=== PATIENT | male | born 1960 | race Caucasian/White ===

== ENCOUNTER 2019-03-23 19:25 | Emergency (ER) | payer OTHER, SELFPAY ==
[2019-03-23 19:33] VITALS: BP 158/69; PULSE 87; RESP 18; TEMP 36.8; O2SAT 96
--- NOTE | 2019-03-23 19:41 | ED_ITS ---
HPI - Chest Pain General Chief Complaint: Chest Pain Stated Complaint: pain underneath rib cage Time Seen by Provider: 03/23/19 19:41 Source: patient Mode of arrival: ambulatory Limitations: no limitations History of Present Illness HPI narrative: The patient developed a right chest wall pain about 1 week ago. He has pain with motion, especially deep inspiration. He thinks he strained something. He did some moving a week ago, pain may be related to the lifting. He has chronic right shoulder pain from prior injury to the shoulder, that does not seem to involve his current pain. He has some left-sided chest pain. He has no history of CAD. He has no difficulty breathing. He denies hemoptysis. He has no history of DVT /PE. He has in IDDM, and hyperlipidemia. His previously undergone cholecystectomy. Today he has had chills, no fever. He denies appetite changes, he has no nausea, vomiting or diarrhea. Related Data Home Medications Medication Instructions Recorded Confirmed levothyroxine 200 mcg PO DAILY 03/23/19 03/23/19 metformin 500 mg PO BID 03/23/19 03/23/19 multivitamin 1 tab PO DAILY 03/23/19 03/23/19 rosuvastatin 10 mg PO DAILY 03/23/19 03/23/19 Previous Rx's Medication Instructions Recorded tramadol 50 mg PO Q6-8H PRN #14 tab 03/23/19 Allergies Allergy/AdvReac Type Severity Reaction Status Date / Time No Known Drug Allergies Allergy Verified 03/23/19 19:46 Review of Systems Review of Systems ROS Unobtainable: All systems reviewed & are unremarkable except as noted in HPI and below Constitutional Denies chills, Denies fever(s) and Denies weakness ENT Ears, Nose, Mouth, and Throat: Denies vertigo, Denies dizziness, Denies neck pa in and Denies sore throat Cardiovascular Reports chest pain (Right ribs) and Denies dyspnea Respiratory Denies cough and Denies dyspnea Gastrointestinal Gastrointestinal: Denies abdominal pain, Denies change in bowel habits, Denies diarrhea, Denies nausea and Denies vomiting Genitourinary Comments: No symptoms Musculoskeletal Denies neck pain Comments: Chronic right shoulder pain. Integumentary/Breasts Denies erythema and Denies rash Neurologic Denies vertigo, Denies dizziness and Denies weakness [facility] Medical History (Updated 03/23/19 @ 22:09 by Ramsey Chambers MD) Diabetes mellitus type 2 in obese (Acute) Diabetes type 2, controlled (Acute) High cholesterol (Acute) Hypothyroid (Acute) Surgical History (Updated 03/23/19 @ 21:02 by Ramsey Chambers MD) History of cholecystectomy (Acute) History of thyroidectomy (Acute) Social History Smoking Status: Never smoker Social History Smoking Status: Never smoker Exam Initial Vital Signs Initial Vital Signs: Vital Signs Temperature 98.3 F 03/23/19 19:33 Pulse Rate 87 03/23/19 19:33 Respiratory Rate 18 03/23/19 19:33 Blood Pressure 158/69 H 03/23/19 19:33 Pulse Oximetry 96 03/23/19 19:33 Const General: cooperative and well developed Nutritional Appearance: well nourished Orientation: alert, awake and oriented x3 HENMT Throat: posterior oropharynx normal Eyes Conjunctivae: conjunctivae normal Sclera: sclerae normal Chest Chest: normal inspection of the chest Other: Tenderness along the right costal margin. Resp Auscultation: clear to auscultation bilaterally and lung sounds not diminished Cardio Rate: regular rate Rhythm: regular rhythm Heart Sounds: S1 normal, S2 normal, no gallops, no murmurs and no rubs GI Inspection: non-distended Palpation: soft, no hepatosplenomegaly, No guarding, No pulsatile mass and tender (Along the right costal margin.) Auscultation: normal bowel sounds Back/Spine/Pelvis Back: No CVA tenderness Skin General: no rashes or lesions noted, No jaundice and No petechiae Neuro General: alert, oriented x3, gait normal and no focal motor deficits Speech: speech normal Extrem General: full ROM, no pedal edema and no calf tenderness Course Course Narrative: By exam the patient initially seemed to have a right costal margin strain. He had a history of chills. evaluation was initiated, and an elevated D-dimer was found. CTA of the chest revealed right atelectasis. He has no other acute process. He is discharged with instructions regarding atelectasis and muscle strain. He is advised to return here as necessary. Orders Ordered: ED Orders 08/17/19 19:51 Complete Blood Count AUTO DIFF Stat Comprehensive Metabolic Panel Stat D Dimer Stat Lipase Stat Partial Thromboplastin Time Stat Prothrombin Time INR Stat Troponin & CK Cardiac Panel Stat 03/23/19 19:52 XR chest 2V Stat 03/23/19 20:55 CT angio chest PE protocol Stat Discontinued Medications Sodium Chloride (Normal Saline 0.9%) 1,000 mls @ 1,000 mls/hr IV BOLUS ONE Stop: 03/23/19 21:54 Last Infusion: 03/23/19 22:24 Dose: 0 mls/hr Admin: 03/23/19 21:21 Dose: 1,000 mls/hr Ketorolac Tromethamine (Toradol) 30 mg IV NOW ONE Stop: 03/23/19 19:49 Last Admin: 03/23/19 20:06 Dose: 30 mg Tramadol HCl (Ultram 50mg Prepack) 1 bottle MISC SEEINSTR ONE Stop: 03/23/19 22:05 Last Admin: 03/23/19 22:07 Dose: 1 bottle Vital Signs - 8 hr 03/23/19 19:33 03/23/19 20:56 03/23/19 22:00 Temperature 98.3 F Pulse Rate 87 80 72 Respiratory Rate 18 22 18 Blood Pressure 158/69 H Blood Pressure [Right Arm] 126/60 130/57 L Pulse Oximetry 96 94 95 MDM - Chest Pain Lab Data Result diagrams: 03/23/19 19:51 03/23/19 19:51 Lab Results 03/23/19 03/23/19 03/23/19 Range/Units 19:51 19:51 19:51 WBC 9.5 (4.5-11.0) X10^3/uL RBC 4.95 (4.5-5.9) X10^6/uL Hgb 14.4 (13.5-17.5) g/dL Hct 42.5 (41-53) % MCV 85.7 (80-100) fL MCH 29.1 (26-34) PG MCHC 34.0 (30-36) % RDW 12.8 (11.6-14.8) % Plt Count 205 (150-400) X10^3/uL Neut % (Auto) 70.5 (50-75) % Lymph % (Auto) 15.9 L (25-40) % Hardeman % (Auto) 7.0 (3-14) % Eos % (Auto) 5.8 H (2-4) % Baso % (Auto) 0.8 (0-2) % Neut # (Auto) 6700 (2855-6250) /uL Lymph # (Auto) 1500 (8521-0126) /uL Hardeman # (Auto) 700 (0-900) /uL Eos # (Auto) 600 H (0-450) /uL Baso # (Auto) 100 (0-100) /uL PT 12.3 (10.1-12.7) SECONDS INR 1.1 (0.9-1.3) APTT 33 (26.4-36.2) SECONDS D-Dimer (<230) ng/mL Sodium 139 (137-145) mmol/L Potassium 4.3 (3.4-5.1) mmol/L Chloride 99 (98-107) mmol/L Carbon Dioxide 32 (22-32) mmol/L BUN 15 (9-20) mg/dL Creatinine 0.70 (0.66-1.25) mg/dL Estimated GFR > 60.0 (>60) mL/min BUN/Creatinine Ratio 21.4 (6-22) Glucose 204 H (70-100) mg/dL Calcium 9.4 (8.4-10.2) mg/dL Total Bilirubin 0.5 (0.2-1.3) mg/dL AST 61 H (17-59) IU/L ALT 89 H (21-72) IU/L Alkaline Phosphatase 129 H (38-126) U/L Total Creatine Kinase 53 L (55-170) U/L CK-MB (CK-2) TNP CK-MB (CK-2) Rel Index TNP Troponin I < 0.012 (0.01-0.034) ng/mL Total Protein 7.8 (6.3-8.2) g/dL Albumin 4.1 (3.5-5.0) g/dL Globulin 3.7 (1.7-4.1) g/dL Albumin/Globulin Ratio 1.1 (1.0-2.8) Lipase 91 (23-300) U/L 03/23/19 Range/Units 19:51 WBC (4.5-11.0) X10^3/uL RBC (4.5-5.9) X10^6/uL Hgb (13.5-17.5) g/dL Hct (41-53) % MCV (80-100) fL MCH (26-34) PG MCHC (30-36) % RDW (11.6-14.8) % Plt Count (150-400) X10^3/uL Neut % (Auto) (50-75) % Lymph % (Auto) (25-40) % Hardeman % (Auto) (3-14) % Eos % (Auto) (2-4) % Baso % (Auto) (0-2) % Neut # (Auto) (6632-8212) /uL Lymph # (Auto) (0674-0871) /uL Hardeman # (Auto) (0-900) /uL Eos # (Auto) (0-450) /uL Baso # (Auto) (0-100) /uL PT (10.1-12.7) SECONDS INR (0.9-1.3) APTT (26.4-36.2) SECONDS D-Dimer 2745 H (<230) ng/mL Sodium (137-145) mmol/L Potassium (3.4-5.1) mmol/L Chloride (98-107) mmol/L Carbon Dioxide (22-32) mmol/L BUN (9-20) mg/dL Creatinine (0.66-1.25) mg/dL Estimated GFR (>60) mL/min BUN/Creatinine Ratio (6-22) Glucose (70-100) mg/dL Calcium (8.4-10.2) mg/dL Total Bilirubin (0.2-1.3) mg/dL AST (17-59) IU/L ALT (21-72) IU/L Alkaline Phosphatase (38-126) U/L Total Creatine Kinase (55-170) U/L CK-MB (CK-2) CK-MB (CK-2) Rel Index Troponin I (0.01-0.034) ng/mL Total Protein (6.3-8.2) g/dL Albumin (3.5-5.0) g/dL Globulin (1.7-4.1) g/dL Albumin/Globulin Ratio (1.0-2.8) Lipase (23-300) U/L Imaging Data Chest x-ray: Radiologist's impression: [address] [address] XRay Report Signed Patient: Kofi Devlin WMR#: [id number] : [id number] Age/Sex: 58 / MDate of Service: 03/23/19 Loc: ED Accession Number: [id number] Procedure: XR chest 2V Ordering Provider: Ramsey Chambers MD PROCEDURE: XR CHEST 2V INDICATIONS: Right chest pain TECHNIQUE: 2 views of the chest were acquired. COMPARISON: None. FINDINGS: Surgical changes and devices: None. Lungs and pleura: Lungs are clear. No pleural effusions or pneumothorax. Mediastinum: Mediastinal contours are normal. Heart size is normal. Bones and chest wall: No suspicious bony abnormalities. Soft tissues appear unremarkable. IMPRESSION: No evidence acute pulmonary process. Dictated by: Herb Flanagan M.D. on 03/23/2019 at 20:11 Approved by: Herb Flanagan M.D. on 03/23/2019 at 20:11 CT scan - chest: Radiologist's impression: Kofi Devlin 58 M [address] [address] [address] Scan Report Signed Patient: Kofi Devlin WMR#: [id number] : [id number] Age/Sex: 58 / MDate of Service: 03/23/19 Loc: ED Accession Number: [id number] Procedure: CT angio chest PE protocol Ordering Provider: Ramsey Chambers MD PROCEDURE: CT ANGIO CHEST PE PROTOCOL INDICATIONS: Atypical right chest pain. Elevated D dimer. TECHNIQUE: After the administration of intravenous contrast, 2 mm thick sections acquired from the pulmonary apices to the posterior costophrenic angles. 3-dimensional maximum intensity projection (MIP) coronal and sagittal reformats were then acquired through the thorax. For radiation dose reduction, the following was used: automated exposure control, adjustment of mA and/or kV according to patient size. COMPARISON: None. FINDINGS: Image quality: Good. Pulmonary arteries: Pulmonary arteries are normal in size. Imaging is somewhat late, and therefore small peripheral intraluminal filling defects cannot be excluded. No large or moderate pulmonary emboli Lungs and pleura: Linear atelectasis, right lung base. Lungs are otherwise clear. No pleural effusions or pneumothorax. Central and peripheral airways are patent. Mediastinum: Heart size is normal, without pericardial effusion. No mediastinal or hilar adenopathy. Thoracic aorta is normal in caliber and enhancement. Esophagus is normal in caliber, without hiatal hernia. Bones and chest wall: No suspicious bony lesions. Ribs and thoracic spine appear intact throughout. Thyroid gland is not well visualized. No axillary or supracla vicular adenopathy. Abdomen: Shotty portacaval lymph nodes. Visualized upper abdominal contents are otherwise unremarkable. IMPRESSION: 1. No evidence of pulmonary emboli. Small peripheral emboli are not excluded 2. Linear atelectasis, right lung base. Comment: Findings were discussed with Dr. Chambers at the time of study dictation. Dictated by: Herb Flanagan M.D. on 03/23/2019 at 21:15 Approved by: Herb Flanagan M.D. on 03/23/2019 at 21:22 ECG Data Attestation: I personally reviewed and interpreted this ECG as follows: (Normal sinus rhythm rate 84 beats per minute. normal intervals. No acute ST T wave changes. No ectopy.) Discharge Plan Departure Patient Disposition: Home Clinical Impression: Muscle strain of anterior chest wall, Atelectasis Discharge Date/Time: 03/23/19 22:27 Interventions: ED Discharge Assessment Last Done: 03/23/19 22:26 Instructions: Atelectasis, DI for Muscle Strain Activity Restrictions/Additional Instructions: Continue your Tylenol and Advil regimen for pain. Tramadol every 6 hours as needed for added pain control. Walk daily with deep breathing. 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 Return the ER for worsening pain, fever, or purulent cough. Return to ER if you start coughing up blood. Prescriptions: New tramadol 50 mg tablet 50 mg PO Q6-8H PRN (Reason: pain) Qty: 14 RF: 0 No Action metformin 500 mg Tablet 500 mg PO BID RF: 0 rosuvastatin 10 mg Tablet 10 mg PO DAILY RF: 0 levothyroxine 200 mcg Capsule 200 mcg PO DAILY RF: 0 multivitamin Tablet 1 tab PO DAILY RF: 0
--- NOTE | 2019-03-23 19:52 | DI.RAD.S_ITS ---
PROCEDURE: XR CHEST 2V INDICATIONS: Right chest pain TECHNIQUE: 2 views of the chest were acquired. COMPARISON: None. FINDINGS: Surgical changes and devices: None. Lungs and pleura: Lungs are clear. No pleural effusions or pneumothorax. Mediastinum: Mediastinal contours are normal. Heart size is normal. Bones and chest wall: No suspicious bony abnormalities. Soft tissues appear unremarkable. IMPRESSION: No evidence acute pulmonary process. Dictated by: Herb Flanagan M.D. on 03/23/2019 at 20:11 Approved by: Herb Flanagan M.D. on 03/23/2019 at 20:11
[2019-03-23 20:06] LABS: Add Manual Diff / Slide Review NO; Basophils Absolute Auto 100 /uL (0-100); Basophils Percent Auto 0.8 % (0-2); Eosinophils Absolute Auto 600 /uL (0-450); Eosinophils Percent Auto 5.8 % (2-4); Hematocrit 42.5 % (41-53); Hemoglobin 14.4 g/dL (13.5-17.5); Lymphocytes Absolute Auto 1500 /uL (1100-4500); Lymphocytes Percent Auto 15.9 % (25-40); Mean Corpuscular Hemoglobin 29.1 PG (26-34); Mean Corpuscular Volume 85.7 fL (80-100); Monocytes Absolute Auto 700 /uL (0-900); Neutrophils Absolute Auto 6700 /uL (1500-7000); Neutrophils Percent Auto 70.5 % (50-75); Platelet Count 205 X10^3/uL (150-400); Red Blood Cell Count 4.95 X10^6/uL (4.5-5.9); Red Cell Distribution Width 12.8 % (11.6-14.8); White Blood Cell Count 9.5 X10^3/uL (4.5-11.0)
[2019-03-23] MEDS: KETOROLAC 60 MG/2 ML VIAL 30 MG IV (20:06)
[2019-03-23 20:14] LABS: INR 1.1 (0.9-1.3); Prothrombin Time 12.3 SECONDS (10.1-12.7)
[2019-03-23 20:17] LABS: PTT Partial Thromboplastin Tim 33 SECONDS (26.4-36.2)
[2019-03-23 20:19] LABS: Alanine Aminotransferase 89 IU/L (21-72); Albumin 4.1 g/dL (3.5-5.0); Albumin Globulin Ratio 1.1 (1.0-2.8); Alkaline Phosphatase 129 U/L (38-126); Aspartate Aminotransferase 61 IU/L (17-59); BUN Creatinine Ratio 21.4 (6-22); Bilirubin Total 0.5 mg/dL (0.2-1.3); Blood Urea Nitrogen 15 mg/dL (9-20); Calcium 9.4 mg/dL (8.4-10.2); Carbon Dioxide 32 mmol/L (22-32); Chloride 99 mmol/L (98-107); Creatine Kinase 53 U/L (55-170); Estimated Glomerular Filt Rate > 60.0 mL/min (>60); Globulin 3.7 g/dL (1.7-4.1); Glucose 204 mg/dL (70-100); HEMOLYSIS < 15 (0-50); Lipase 91 U/L (23-300); Potassium 4.3 mmol/L (3.4-5.1); Sodium 139 mmol/L (137-145); Total Protein 7.8 g/dL (6.3-8.2)
[2019-03-23 20:31] LABS: Troponin I < 0.012 ng/mL (0.01-0.034)
[2019-03-23 20:32] LABS: D Dimer 2745 ng/mL (<230)
--- NOTE | 2019-03-23 20:55 | DI.CT.S_ITS ---
PROCEDURE: CT ANGIO CHEST PE PROTOCOL INDICATIONS: Atypical right chest pain. Elevated D dimer. TECHNIQUE: After the administration of intravenous contrast, 2 mm thick sections acquired from the pulmonary apices to the posterior costophrenic angles. 3-dimensional maximum intensity projection (MIP) coronal and sagittal reformats were then acquired through the thorax. For radiation dose reduction, the following was used: automated exposure control, adjustment of mA and/or kV according to patient size. COMPARISON: None. FINDINGS: Image quality: Good. Pulmonary arteries: Pulmonary arteries are normal in size. Imaging is somewhat late, and therefore small peripheral intraluminal filling defects cannot be excluded. No large or moderate pulmonary emboli Lungs and pleura: Linear atelectasis, right lung base. Lungs are otherwise clear. No pleural effusions or pneumothorax. Central and peripheral airways are patent. Mediastinum: Heart size is normal, without pericardial effusion. No mediastinal or hilar adenopathy. Thoracic aorta is normal in caliber and enhancement. Esophagus is normal in caliber, without hiatal hernia. Bones and chest wall: No suspicious bony lesions. Ribs and thoracic spine appear intact throughout. Thyroid gland is not well visualized. No axillary or supraclavicular adenopathy. Abdomen: Shotty portacaval lymph nodes. Visualized upper abdominal contents are otherwise unremarkable. IMPRESSION: 1. No evidence of pulmonary emboli. Small peripheral emboli are not excluded 2. Linear atelectasis, right lung base. Comment: Findings were discussed with Dr. Chambers at the time of study dictation. Dictated by: Herb Flanagan M.D. on 03/23/2019 at 21:15 Approved by: Herb Flanagan M.D. on 03/23/2019 at 21:22
[2019-03-23 20:56] VITALS: BP 126/60; PULSE 80; RESP 22; O2SAT 94
[2019-03-23] MEDS: SODIUM CHLORIDE 0.9% 1,000 ML 1000 ML IV (21:21)
[2019-03-23 22:00] VITALS: BP 130/57; PULSE 72; RESP 18; O2SAT 95
[2019-03-23] MEDS: TRAMADOL 50 MG PREPACK 1 BOTTLE MISC (22:07)
== END 2019-03-23 22:27 | disposition home or self-care (01) ==
PROVIDERS: Emergency Provider Emergency Medicine
DX: S29.011A Strain of muscle and tendon of front wall of thorax, initial encounter (principal); J98.11 Atelectasis
CPT/HCPCS: 36591; 71046; 71275; 80053; 82550; 83690; 84484; 85025; 85379; 85610; 85730; 93005; 93010; 96361; 96374; 99283; 99285; J1885; Q9967

== ENCOUNTER 2019-04-08 06:44 | Emergency (ER) | payer OTHER, SELFPAY ==
[2019-04-08 06:51] VITALS: BP 143/63; PULSE 101; RESP 22; TEMP 37.4; O2SAT 96; BMI 40.4
--- NOTE | 2019-04-08 07:01 | ED_ITS ---
HPI - Chest Pain General Chief Complaint: Chest Pain Stated Complaint: CHEST DISCOMFORT Time Seen by Provider: 04/08/19 06:59 Source: patient Mode of arrival: ambulatory Limitations: no limitations History of Present Illness HPI narrative: 58-year-old male who is seen here in the emergency department 2 weeks ago for right-sided chest discomfort. At that point had a chest x-ray and labs and a CTA of the chest which showed right-sided atelectasis. Was sent home with symptom control. Here for evaluation of same symptoms. He does describe right-sided upper abdomen/chest discomfort. Some nausea but no vomiting. No urinary symptoms. No change in his bowel habits. States that he can take a deep breath however at hurts to breathe. This pain is not worse with palpation or movement. Not worse with bowel movements or urinating. States the pain medications are only minimally helping his symptoms. Has had his gallbladder out. Related Data Home Medications Medication Instructions Recorded Confirmed levothyroxine 200 mcg PO DAILY 03/23/19 03/23/19 metformin 500 mg PO BID 03/23/19 03/23/19 multivitamin 1 tab PO DAILY 03/23/19 03/23/19 rosuvastatin 10 mg PO DAILY 03/23/19 03/23/19 Previous Rx's Medication Instructions Recorded tramadol 50 mg PO Q6-8H PRN #14 tab 03/23/19 ondansetron 4 mg PO Q6H PRN #14 tab 04/08/19 oxycodone-acetaminophen [Percocet] 1 tab PO Q4-6H PRN #7 tab 04/08/19 Allergies Allergy/AdvReac Type Severity Reaction Status Date / Time No Known Drug Allergies Allergy Verified 03/23/19 19:46 Review of Systems Constitutional Constitutional: Denies fatigue and Denies fever(s) Cardiovascular Cardiovascular: Denies chest pain, Denies palpitations, Reports dyspnea (Secondary to the pain) and Denies dyspnea on exertion Respiratory Respiratory: Reports dyspnea (Secondary to the pain) and Denies dyspnea on exertion Gastrointestinal Gastrointestinal: Reports abdominal pain, Denies change in stool character, Reports nausea and Denies vomiting Genitourinary Genitourinary: Denies dysuria and Denies flank pain Musculoskeletal Musculoskeletal: Denies abnormal gait, Denies myalgias and Denies arthralgias Integumentary/Breasts Skin/Breast: Denies lesions and Denies rash Neurologic Neurologic: Denies abnormal gait and Denies behavioral changes Psychiatric Psychiatric: Denies behavioral changes Endocrine Endocrine: Denies fatigue and Denies palpitations Hematologic/Lymphatic Hematologic/Lymphatic: Denies easy bleeding and Denies easy bruising [facility] Medical History Diabetes mellitus type 2 in obese (Acute) Diabetes type 2, controlled (Acute) High cholesterol (Acute) Hypothyroid (Acute) Surgical History History of cholecystectomy (Acute) History of thyroidectomy (Acute) Social History Smoking Status: Never smoker Social History Smoking Status: Never smoker Exam Initial Vital Signs Initial Vital Signs: Vital Signs Temperature 99.4 F 04/08/19 06:51 Pulse Rate 101 H 04/08/19 06:51 Respiratory Rate 22 04/08/19 06:51 Blood Pressure 143/63 H 04/08/19 06:51 Pulse Oximetry 96 04/08/19 06:51 Const General: cooperative, well developed and well groomed Orientation: alert, awake and oriented x3 HENMT Head: normal to inspection and normocephalic Chest Chest: No crepitus and No tenderness Resp Effort & Inspection: normal respiratory effort Auscultation: clear to auscultation bilaterally Cardio Rate: regular rate Rhythm: regular rhythm Pulses: radial pulses present GI Inspection: non-distended Palpation: soft, No firm and No tender Back/Spine/Pelvis Back: No CVA tenderness Skin Lesions: no lesions Rashes: no rashes Neuro General: alert and awake Cognition: normal cognition Speech: speech normal Gait: normal gait Motor: muscle tone normal throughout Extrem General: normal to inspection and capillary refill normal Psych Appearance: grossly normal and well kempt Course Orders Ordered: ED Orders 04/08/19 06:47 EKG-12 Lead Stat 04/08/19 07:00 CRP [C-Reactive Protein Quant] Stat Carcinoembryonic Antigen Stat Complete Blood Count AUTO DIFF Stat Comprehensive Metabolic Panel Stat Erythrocyte Sedimentation Rate Stat Lipase Stat Partial Thromboplastin Time Stat Procalcitonin Stat Prothrombin Time INR Stat Troponin & CK Cardiac Panel Stat 04/08/19 07:11 Chest [XR chest 2V] Stat 04/08/19 07:46 CT abdomen pelvis w con Stat 04/08/19 07:48 Hepatitis Acute Panel Stat 04/08/19 09:01 Alpha Fetoprotein Stat 04/08/19 09:15 Blood Culture Stat 04/08/19 09:25 Lactate (Lactic Acid) Stat Discontinued Medications Ondansetron HCl (Zofran) 4 mg IV NOW ONE Stop: 04/08/19 07:49 Last Admin: 04/08/19 07:53 Dose: 4 mg Documented by: JANAY Vital Signs Vital signs: Vital Signs - 8 hr 04/08/19 06:51 04/08/19 08:18 04/08/19 09:21 Temperature 99.4 F Pulse Rate 101 H 81 82 Respiratory Rate 22 16 18 Blood Pressure 143/63 H Blood Pressure [Left Arm] 120/50 L 161/134 H Pulse Oximetry 96 93 93 04/08/19 10:43 Temperature Pulse Rate 84 Respiratory Rate 16 Blood Pressure Blood Pressure [Left Arm] 121/56 L Pulse Oximetry 98 MDM - Chest Pain Medical Records Data Attestation: I reviewed the patient's medical records. Lab Data Attestation: I reviewed the patient's lab results. Result diagrams: 04/08/19 07:00 04/08/19 07:00 Labs: Lab Results 04/08/19 04/08/19 04/08/19 Range/Units 07:00 07:00 07:00 WBC 11.2 H (4.5-11.0) X10^3/uL RBC 4.76 (4.5-5.9) X10^6/uL Hgb 13.5 (13.5-17.5) g/dL Hct 40.1 L (41-53) % MCV 84.3 (80-100) fL MCH 28.3 (26-34) PG MCHC 33.5 (30-36) % RDW 13.5 (11.6-14.8) % Plt Count 205 (150-400) X10^3/uL Neut % (Auto) 74.2 (50-75) % Lymph % (Auto) 10.2 L (25-40) % Montgomery % (Auto) 9.5 (3-14) % Eos % (Auto) 5.2 H (2-4) % Baso % (Auto) 0.9 (0-2) % Neut # (Auto) 8300 H (2743-0853) /uL Lymph # (Auto) 1100 (5224-0362) /uL Montgomery # (Auto) 1100 H (0-900) /uL Eos # (Auto) 600 H (0-450) /uL Baso # (Auto) 100 (0-100) /uL ESR (0-15) MM/HR PT 14.3 H (10.1-12.7) SECONDS INR 1.2 (0.9-1.3) APTT 32 (26.4-36.2) SECONDS Sodium 138 (137-145) mmol/L Potassium 4.2 (3.4-5.1) mmol/L Chloride 99 (98-107) mmol/L Carbon Dioxide 27 (22-32) mmol/L BUN 16 (9-20) mg/dL Creatinine 0.60 L (0.66-1.25) mg/dL Estimated GFR > 60.0 (>60) mL/min BUN/Creatinine Ratio 26.7 H (6-22) Glucose 178 H (70-100) mg/dL Lactate (0.7-2.1) mmol/L Calcium 9.3 (8.4-10.2) mg/dL Total Bilirubin 1.5 H (0.2-1.3) mg/dL AST 101 H (17-59) IU/L ALT 124 H (21-72) IU/L Alkaline Phosphatase 352 H (38-126) U/L Total Creatine Kinase 30 L (55-170) U/L CK-MB (CK-2) TNP CK-MB (CK-2) Rel Index TNP Troponin I < 0.012 (0.01-0.034) ng/mL C-Reactive Protein (<1.0) mg/dL Total Protein 7.4 (6.3-8.2) g/dL Albumin 3.8 (3.5-5.0) g/dL Globulin 3.6 (1.7-4.1) g/dL Albumin/Globulin Ratio 1.1 (1.0-2.8) Lipase 66 (23-300) U/L Carcinoembryonic Ag (0.1-3.0) ng/mL Procalcitonin (<0.5) ng/mL 04/08/19 04/08/19 04/08/19 Range/Units 07:00 07:00 07:00 WBC (4.5-11.0) X10^3/uL RBC (4.5-5.9) X10^6/uL Hgb (13.5-17.5) g/dL Hct (41-53) % MCV (80-100) fL MCH (26-34) PG MCHC (30-36) % RDW (11.6-14.8) % Plt Count (150-400) X10^3/uL Neut % (Auto) (50-75) % Lymph % (Auto) (25-40) % Montgomery % (Auto) (3-14) % Eos % (Auto) (2-4) % Baso % (Auto) (0-2) % Neut # (Auto) (6459-7552) /uL Lymph # (Auto) (6460-1322) /uL Montgomery # (Auto) (0-900) /uL Eos # (Auto) (0-450) /uL Baso # (Auto) (0-100) /uL ESR 56 H (0-15) MM/HR PT (10.1-12.7) SECONDS INR (0.9-1.3) APTT (26.4-36.2) SECONDS Sodium (137-145) mmol/L Potassium (3.4-5.1) mmol/L Chloride (98-107) mmol/L Carbon Dioxide (22-32) mmol/L BUN (9-20) mg/dL Creatinine (0.66-1.25) mg/dL Estimated GFR (>60) mL/min BUN/Creatinine Ratio (6-22) Glucose (70-100) mg/dL Lactate (0.7-2.1) mmol/L Calcium (8.4-10.2) mg/dL Total Bilirubin (0.2-1.3) mg/dL AST (17-59) IU/L ALT (21-72) IU/L Alkaline Phosphatase (38-126) U/L Total Creatine Kinase (55-170) U/L CK-MB (CK-2) CK-MB (CK-2) Rel Index Troponin I (0.01-0.034) ng/mL C-Reactive Protein (<1.0) mg/dL Total Protein (6.3-8.2) g/dL Albumin (3.5-5.0) g/dL Globulin (1.7-4.1) g/dL Albumin/Globulin Ratio (1.0-2.8) Lipase (23-300) U/L Carcinoembryonic Ag 0.5 (0.1-3.0) ng/mL Procalcitonin 1.39 H (<0.5) ng/mL 04/08/19 04/08/19 Range/Units 07:00 09:25 WBC (4.5-11.0) X10^3/uL RBC (4.5-5.9) X10^6/uL Hgb (13.5-17.5) g/dL Hct (41-53) % MCV (80-100) fL MCH (26-34) PG MCHC (30-36) % RDW (11.6-14.8) % Plt Count (150-400) X10^3/uL Neut % (Auto) (50-75) % Lymph % (Auto) (25-40) % Montgomery % (Auto) (3-14) % Eos % (Auto) (2-4) % Baso % (Auto) (0-2) % Neut # (Auto) (2147-9035) /uL Lymph # (Auto) (7395-7215) /uL Montgomery # (Auto) (0-900) /uL Eos # (Auto) (0-450) /uL Baso # (Auto) (0-100) /uL ESR (0-15) MM/HR PT (10.1-12.7) SECONDS INR (0.9-1.3) APTT (26.4-36.2) SECONDS Sodium (137-145) mmol/L Potassium (3.4-5.1) mmol/L Chloride (98-107) mmol/L Carbon Dioxide (22-32) mmol/L BUN (9-20) mg/dL Creatinine (0.66-1.25) mg/dL Estimated GFR (>60) mL/min BUN/Creatinine Ratio (6-22) Glucose (70-100) mg/dL Lactate 1.2 (0.7-2.1) mmol/L Calcium (8.4-10.2) mg/dL Total Bilirubin (0.2-1.3) mg/dL AST (17-59) IU/L ALT (21-72) IU/L Alkaline Phosphatase (38-126) U/L Total Creatine Kinase (55-170) U/L CK-MB (CK-2) CK-MB (CK-2) Rel Index Troponin I (0.01-0.034) ng/mL C-Reactive Protein 20.7 H (<1.0) mg/dL Total Protein (6.3-8.2) g/dL Albumin (3.5-5.0) g/dL Globulin (1.7-4.1) g/dL Albumin/Globulin Ratio (1.0-2.8) Lipase (23-300) U/L Carcinoembryonic Ag (0.1-3.0) ng/mL Procalcitonin (<0.5) ng/mL Imaging Data Chest x-ray: Radiologist's impression: [address] [address] XRay Report Signed Patient: Kofi Devlin WMR#: [id number] : 2Acct:[id number] Age/Sex: 58 / MDate of Service: 04/08/19 Loc: ED Accession Number: [id number] Procedure: XR chest 2V Ordering Provider: Jaxson Mchugh D.O. PROCEDURE: XR CHEST 2V INDICATIONS: chest pain upon inspiration/cough TECHNIQUE: 2 views of the chest were acquired. COMPARISON: [facility], CT, CT ANGIO CHEST PE PROTOCOL, 03/23/2019, 20:56. [facility], CR, XR CHEST 2V, 03/23/2019, 19:54. FINDINGS: Surgical changes and devices: Postoperative change of the left shoulder is seen. Lungs and pleura: Low lung volumes are noted. This causes a crowded appearance to the lung markings and limits evaluation. Mild, streaky opacities are seen at the lung bases. No focal infiltrates are seen. Mediastinum: Mediastinal contours are normal. Heart size is normal. Bones and chest wall: No suspicious bony abnormalities. Age-appropriate bony degenerative changes are seen. Soft tissues appear unremarkable. IMPRESSION: Low lung volumes, with likely atelectasis at the lung bases. Dictated by: Balta Cowart M.D. on 04/08/2019 at 6:32 Approved by: Balta Cowart M.D. on 04/08/2019 at 6:34 CT scan - abdomen: Radiologist's impression: [address] [address] [address] Scan Report Signed Patient: Kofi Devlin WMR#: [id number] : 2Acct:[id number] Age/Sex: 58 / MDate of Service: 04/08/19 Loc: ED Accession Number: [id number] Procedure: CT abdomen pelvis w con Ordering Provider: Jaxson Mchugh D.O. PROCEDURE: CT ABDOMEN PELVIS W CON INDICATIONS: Generalized abdominal pain TECHNIQUE: After the administration of intravenous contrast, 5 mm thick sections acquired from the diaphragm to the symphysis. 5 mm coronal and sagittal reformats were acquired. For radiation dose reduction, the following was used: automated exposure control, adjustment of mA and/or kV according to patient size. COMPARISON: [facility], CR, XR CHEST 2V, 04/08/2019, 7:11. [facility], CT, CT ANGIO CHEST PE PROTOCOL, 03/23/2019, 20:56. FINDINGS: Image quality: Excellent. ABDOMEN: Lung bases: Lung bases are clear. Heart size is normal. Solid organs: The liver demonstrates innumerable well-defined low-density lesions varying sizes. The largest of these measures 4.4 cm. Gallbladder is not seen. Biliary system is non dilated. Pancreas enhances normally. Spleen is enlarged measuring 16 cm AP. No definite focal splenic lesions are detected. No adrenal nodules. Kidneys demonstrate normal size and enhancement, without hydronephrosis. Peritoneum and bowel: Subtle areas of colonic thickening are seen, including the ascending colon, the proximal transverse colon, and the sigmoid colon. Sigmoid diverticulosis is seen. There is a small amount of free intraperitoneal fluid seen. No dilated loops of small bowel are seen seen. No free air is seen. Incidental note is made of a normal-appearing appendix. Nodes and vessels: No retroperitoneal or mesenteric adenopathy by size cr iteria. Aorta and inferior vena cava are normal in size. Miscellaneous: A trace periumbilical hernia is seen, containing fat. PELVIS: Genitourinary: Bladder wall thickness is normal. Miscellaneous: No inguinal adenopathy. Mild bilateral fat containing inguinal hernias Bones: No suspicious bony lesions. No vertebral body compression fractures. Degenerative changes are seen, which are most prominent at the L5-S1 level. IMPRESSION: Metastatic disease to the liver until proven otherwise. 3 areas of colonic wall thickening are seen. When clinically appropriate (fo llowing adequate treatment of the patient's current clinical episode) a colonoscopy is recommended for further evaluation for a potential underlying mass (if not already recently done). Likely mild distal sigmoid diverticulitis. There is a small amount of free intraperitoneal fluid seen, which is abnormal for a male. Incidental note is made of: Splenomegaly Trace periumbilical hernia Focal L5-S1 degenerative change Normal appendix Mild bilateral fat containing inguinal hernias Dictated by: Balta Cowart M.D. on 04/08/2019 at 7:25 Approved by: Balta Cowart M.D. on 04/08/2019 at 7:33 ECG Data Attestation: I personally reviewed and interpreted this ECG as follows: Prior ECG tracings: not available for review Interpretation: Sinus tachycardia Ventricular rate of 101 Left axis deviation Normal QRS Normal QTC No ST T wave changes MDM Narrative Medical decision making narrative: Patient does have a benign abdominal exam. During his prior visit here in the emergency department he had a cardiac workup to include a CT of his chest which does not show any pulmonary embolism. His presenting symptoms today he states are the same symptoms he had during his last visit only worsening/continuing. CT scan of his abdomen is performed. There are lesions on his liver and thickening of his colon that is concerning for metastatic disease. Patient stated that he had a colonoscopy within the past year were 1 polyp was removed. He states that there were no other a bnormalities. Five years before that he had another colonoscopy where he stated that they removed multiple polyps that were all ?pre cancerous? he does have a family history of ?cancers ?I did discuss the case with his primary provider who recommended adding the cancer markers and other inflammatory markers. His symptoms could also be inflammatory/infectious. His hepatitis panel is pending. Will send home with a change in his symptom treatment. We were able to schedule an appointment for him tomorrow with his primary provider. Patient was given this information. Was given return precautions and follow-up instructions. He expressed understanding and agreement with plan. Discharge Plan Departure Patient Disposition: Home Clinical Impression: Abdominal pain Qualifiers: Abdominal location: generalized Qualified Code(s): R10.84 - Generalized abdominal pain Instructions: DI for Abdominal Pain-Adult Activity Restrictions/Additional Instructions: Take all of your medications as directed. You do have an appointment tomorrow morning with Dr. Tyson office in [place] had a check-in time at 0920 hours. It is important that you keep this appointment and if you cannot keep it. Return to the emergency department for any new or worsening symptoms Prescriptions: New ondansetron 4 mg tablet,disintegrating 4 mg PO Q6H PRN (Reason: nausea and vomiting) Qty: 14 RF: 0 oxycodone-acetaminophen [Percocet] 5-325 mg tablet 1 tab PO Q4-6H PRN (Reason: pain) Qty: 7 RF: 0 No Action metformin 500 mg Tablet 500 mg PO BID RF: 0 rosuvastatin 10 mg Tablet 10 mg PO DAILY RF: 0 levothyroxine 200 mcg Capsule 200 mcg PO DAILY RF: 0 multivitamin Tablet 1 tab PO DAILY RF: 0 tramadol 50 mg tablet 50 mg PO Q6-8H PRN (Reason: pain) Qty: 14 RF: 0
--- NOTE | 2019-04-08 07:11 | DI.RAD.S_ITS ---
PROCEDURE: XR CHEST 2V INDICATIONS: chest pain upon inspiration/cough TECHNIQUE: 2 views of the chest were acquired. COMPARISON: [facility], CT, CT ANGIO CHEST PE PROTOCOL, 03/23/2019, 20:56. [facility], CR, XR CHEST 2V, 03/23/2019, 19:54. FINDINGS: Surgical changes and devices: Postoperative change of the left shoulder is seen. Lungs and pleura: Low lung volumes are noted. This causes a crowded appearance to the lung markings and limits evaluation. Mild, streaky opacities are seen at the lung bases. No focal infiltrates are seen. Mediastinum: Mediastinal contours are normal. Heart size is normal. Bones and chest wall: No suspicious bony abnormalities. Age-appropriate bony degenerative changes are seen. Soft tissues appear unremarkable. IMPRESSION: Low lung volumes, with likely atelectasis at the lung bases. Dictated by: Balta Cowart M.D. on 04/08/2019 at 6:32 Approved by: Balta Cowart M.D. on 04/08/2019 at 6:34
--- NOTE | 2019-04-08 07:15 | PC.NURSE ---
pt arrived POV with . reports CP and continuous nausea since 02/26. taking OTC meds + tramadol for pain. has been seen twice before for same sx. CP with inspiration, lungs clear. ambulatory. NSR 88. connected to cardiac monitoring. 20G IV placed and labs sent per protocol. pt CXR completed. awaiting MD assessment.
[2019-04-08 07:20] LABS: Add Manual Diff / Slide Review NO; Basophils Absolute Auto 100 /uL (0-100); Basophils Percent Auto 0.9 % (0-2); Eosinophils Absolute Auto 600 /uL (0-450); Eosinophils Percent Auto 5.2 % (2-4); Hematocrit 40.1 % (41-53); Hemoglobin 13.5 g/dL (13.5-17.5); Lymphocytes Absolute Auto 1100 /uL (1100-4500); Lymphocytes Percent Auto 10.2 % (25-40); Mean Corpuscular HGB Conc 33.5 % (30-36); Mean Corpuscular Hemoglobin 28.3 PG (26-34); Mean Corpuscular Volume 84.3 fL (80-100); Monocytes Absolute Auto 1100 /uL (0-900); Monocytes Percent Auto 9.5 % (3-14); Neutrophils Absolute Auto 8300 /uL (1500-7000); Neutrophils Percent Auto 74.2 % (50-75); Platelet Count 205 X10^3/uL (150-400); Red Blood Cell Count 4.76 X10^6/uL (4.5-5.9); Red Cell Distribution Width 13.5 % (11.6-14.8); White Blood Cell Count 11.2 X10^3/uL (4.5-11.0)
[2019-04-08 07:21] LABS: INR 1.2 (0.9-1.3); Prothrombin Time 14.3 SECONDS (10.1-12.7)
[2019-04-08 07:22] LABS: HEMOLYSIS < 15 (0-50); Sodium 138 mmol/L (137-145)
[2019-04-08 07:24] LABS: PTT Partial Thromboplastin Tim 32 SECONDS (26.4-36.2)
[2019-04-08 07:25] LABS: Alanine Aminotransferase 124 IU/L (21-72); Albumin 3.8 g/dL (3.5-5.0); Albumin Globulin Ratio 1.1 (1.0-2.8); Alkaline Phosphatase 352 U/L (38-126); Aspartate Aminotransferase 101 IU/L (17-59); BUN Creatinine Ratio 26.7 (6-22); Bilirubin Total 1.5 mg/dL (0.2-1.3); Blood Urea Nitrogen 16 mg/dL (9-20); Calcium 9.3 mg/dL (8.4-10.2); Carbon Dioxide 27 mmol/L (22-32); Chloride 99 mmol/L (98-107); Creatine Kinase 30 U/L (55-170); Estimated Glomerular Filt Rate > 60.0 mL/min (>60); Globulin 3.6 g/dL (1.7-4.1); Glucose 178 mg/dL (70-100); Lipase 66 U/L (23-300); Potassium 4.2 mmol/L (3.4-5.1); Total Protein 7.4 g/dL (6.3-8.2)
[2019-04-08 07:37] LABS: Troponin I < 0.012 ng/mL (0.01-0.034)
--- NOTE | 2019-04-08 07:46 | DI.CT.S_ITS ---
PROCEDURE: CT ABDOMEN PELVIS W CON INDICATIONS: Generalized abdominal pain TECHNIQUE: After the administration of intravenous contrast, 5 mm thick sections acquired from the diaphragm to the symphysis. 5 mm coronal and sagittal reformats were acquired. For radiation dose reduction, the following was used: automated exposure control, adjustment of mA and/or kV according to patient size. COMPARISON: [facility], CR, XR CHEST 2V, 04/08/2019, 7:11. [facility], CT, CT ANGIO CHEST PE PROTOCOL, 03/23/2019, 20:56. FINDINGS: Image quality: Excellent. ABDOMEN: Lung bases: Lung bases are clear. Heart size is normal. Solid organs: The liver demonstrates innumerable well-defined low-density lesions varying sizes. The largest of these measures 4.4 cm. Gallbladder is not seen. Biliary system is non dilated. Pancreas enhances normally. Spleen is enlarged measuring 16 cm AP. No definite focal splenic lesions are detected. No adrenal nodules. Kidneys demonstrate normal size and enhancement, without hydronephrosis. Peritoneum and bowel: Subtle areas of colonic thickening are seen, including the ascending colon, the proximal transverse colon, and the sigmoid colon. Sigmoid diverticulosis is seen. There is a small amount of free intraperitoneal fluid seen. No dilated loops of small bowel are seen seen. No free air is seen. Incidental note is made of a normal-appearing appendix. Nodes and vessels: No retroperitoneal or mesenteric adenopathy by size criteria. Aorta and inferior vena cava are normal in size. Miscellaneous: A trace periumbilical hernia is seen, containing fat. PELVIS: Genitourinary: Bladder wall thickness is normal. Miscellaneous: No inguinal adenopathy. Mild bilateral fat containing inguinal hernias Bones: No suspicious bony lesions. No vertebral body compression fractures. Degenerative changes are seen, which are most prominent at the L5-S1 level. IMPRESSION: Metastatic disease to the liver until proven otherwise. 3 areas of colonic wall thickening are seen. When clinically appropriate (following adequate treatment of the patient's current clinical episode) a colonoscopy is recommended for further evaluation for a potential underlying mass (if not already recently done). Likely mild distal sigmoid diverticulitis. There is a small amount of free intraperitoneal fluid seen, which is abnormal for a male. Incidental note is made of: Splenomegaly Trace periumbilical hernia Focal L5-S1 degenerative change Normal appendix Mild bilateral fat containing inguinal hernias Dictated by: Balta Cowart M.D. on 04/08/2019 at 7:25 Approved by: Balta Cowart M.D. on 04/08/2019 at 7:33
--- NOTE | 2019-04-08 07:49 | PC.NURSE ---
Hep C panel drawn. pt awaiting CT C/A/P
[2019-04-08] MEDS: ONDANSETRON 4 MG/2 ML INJ IV (07:53)
[2019-04-08 08:18] VITALS: BP 120/50; PULSE 81; RESP 16; O2SAT 93
[2019-04-08 09:21] VITALS: BP 161/134; PULSE 82; RESP 18; O2SAT 93
[2019-04-08 09:37] LABS: C-Reactive Protein Quant 20.7 mg/dL (<1.0); Procalcitonin 1.39 ng/mL (<0.5)
[2019-04-08 09:47] LABS: Erythrocyte Sedimentation Rate 56 MM/HR (0-15)
[2019-04-08 09:54] LABS: Carcinoembryonic Antigen 0.5 ng/mL (0.1-3.0)
[2019-04-08 10:09] LABS: Lactate (Lactic Acid) 1.2 mmol/L (0.7-2.1)
[2019-04-08 10:43] VITALS: BP 121/56; PULSE 84; RESP 16; O2SAT 98
[2019-04-09 10:18] LABS: Acinetobacter baumannii Not Detected (Not Detect); Candida albicans Not Detected (Not Detect); Candida glabrata Not Detected (Not Detect); Candida krusei Not Detected (Not Detect); Candida parapsilosis Not Detected (Not Detect); Candida tropicalis Not Detected (Not Detect); E. coli Not Detected (Not Detect); Enterobacter cloacae complex Not Detected (Not Detect); Enterobacteriaceae species Not Detected (Not Detect); Enterococcus species Not Detected (Not Detect); Haemophilus influenzae Not Detected (Not Detect); KPC (carbapenem-resist gene) Not Detected (Not Detect); Listeria monocytogenes Not Detected (Not Detect); Methicillin-resistant gene Not Detected (Not Detect); Neisseria meningitidis Not Detected (Not Detect); Proteus species Not Detected (Not Detect); Pseudomonas aeruginosa Not Detected (Not Detect); Serratia marcescens Not Detected (Not Detect); Staphylococcus species Not Detected (Not Detect); Streptococcus agalactiae (Gr B Not Detected (Not Detect); Streptococcus pneumonia Not Detected (Not Detect); Streptococcus pyogenes (Gr A) Not Detected (Not Detect); Streptococcus species Not Detected (Not Detect); Vancomycin-rest genes A/B Not Detected (Not Detect)
--- NOTE | 2019-04-09 15:00 | ONC.MSW ---
Addendum entered and electronically signed by NJ Engle 04/09/19 15:15: USER EXPERIENCE ARCHITECT called Dr. Tyson's office and confirmed that I had reached out to pt, and that we would f/u with scheduling him for his oncology consult tomorrow am. Original Note: Description: Introductory Navigation T/C Activity: Called pt/spouse to introduce myself as the USER EXPERIENCE ARCHITECT/MARGUERITE, explain that we've received his referral and are actively working on preliminary auths/intake steps. Explained briefly the role of navigation, and assessed immediate concerns and needs. states that she and pt are actually going to go back into the ED this afternoon, per their MD's request, to have his labs assessed again to determine if there is a hematologic reason for abnormal labs and liver lesions. USER EXPERIENCE ARCHITECT will check chart tomorrow to ensure continuity of care, and information needed for pt's first consult appointment. Plan to have scheduling wait until tomorrow to call to schedule, due to pt's schedule today.
[2019-04-10 15:32] LABS: Alpha Fetoprotein 1.6 ng/mL (< 6.1)
[2019-04-11 08:42] LABS: Hepatitis A Antibody IgM NONREACTIVE; Hepatitis Acute Panel Interp 0.02; Hepatitis B Core Antibody IgM NONREACTIVE; Hepatitis B Surface Antigen NONREACTIVE; Hepatitis C Antibody NONREACTIVE
--- NOTE | 2019-05-07 13:48 | ONC.MSW ---
*Sent bereavement card.
== END 2019-04-08 10:59 | disposition home or self-care (01) ==
PROVIDERS: Emergency Provider Emergency Medicine
DX: R10.84 Generalized abdominal pain (principal)
CPT/HCPCS: 36415; 36591; 71046; 74177; 80053; 80074; 82105; 82378; 82550; 83605; 83690; 84145; 84484; 85025; 85610; 85651; 85730; 86140; 87040; 87150; 87186; 87205; 93005; 93041; 96374; 99283; 99285; J2405; Q9967

== ENCOUNTER 2019-04-09 16:09 | Inpatient (IN) | payer OTHER, SELFPAY ==
[2019-04-09] VITALS (7 sets, daily range): BP systolic 108–133; BP diastolic 49–66; PULSE 74–97; RESP 15–24; TEMP 37.4–38.5; O2SAT 92–100; BMI 40.7
--- NOTE | 2019-04-09 16:20 | ED.RECABL ---
HPI - Recheck/Abnormal Lab/Rx General Chief Complaint: Recheck/Abnormal Lab/Rx Stated Complaint: ANTIBIOTICS INFECTION Time Seen by Provider: 04/09/19 16:12 Source: patient Mode of arrival: ambulatory Limitations: no limitations History of Present Illness HPI narrative: 58-year-old male who I evaluated the emergency department yesterday. Had a workup of his abdomen with concern for lesions on his liver that could potentially be metastatic disease. There was also slight concern for an infectious process. Labs were drawn yesterday. He was discharged home. He did have a follow-up with his primary doctor today and after our his primary provider talked with the radiologist there does seem to be a mass at the head of the pancreas which would make the patient's liver findings yesterday more concerning for metastatic disease rather than infectious. Received a call today in the emergency department from the lab 1 set of the patient's anaerobic in a row bit blood cultures were positive for gram-positive cocci. The patient was called to return to the emergency department. He reports that he has little change in his health from yesterday. Related Data Home Medications Medication Instructions Recorded Confirmed levothyroxine 200 mcg PO DAILY 03/23/19 03/23/19 metformin 500 mg PO BID 03/23/19 03/23/19 multivitamin 1 tab PO DAILY 03/23/19 03/23/19 rosuvastatin 10 mg PO DAILY 03/23/19 03/23/19 Previous Rx's Medication Instructions Recorded tramadol 50 mg PO Q6-8H PRN #14 tab 03/23/19 ondansetron 4 mg PO Q6H PRN #14 tab 04/08/19 oxycodone-acetaminophen [Percocet] 1 tab PO Q4-6H PRN #7 tab 04/08/19 Allergies Allergy/AdvReac Type Severity Reaction Status Date / Time No Known Drug Allergies Allergy Verified 03/23/19 19:46 Review of Systems Constitutional Constitutional: Reports fatigue and Denies fever(s) Cardiovascular Cardiovascular: Denies chest pain and Denies dyspnea Respiratory Respiratory: Denies dyspnea Gastrointestinal Gastrointestinal: Reports abdominal pain, Reports nausea and Denies vomiting Genitourinary Genitourinary: Denies dysuria Musculoskeletal Musculoskeletal: Denies myalgias and Denies arthralgias Integumentary/Breasts Skin/Breast: Denies rash Neurologic Neurologic: Denies behavioral changes Psychiatric Psychiatric: Denies behavioral changes Endocrine Endocrine: Reports fatigue Hematologic/Lymphatic Hematologic/Lymphatic: Denies easy bleeding and Denies easy bruising [facility] Social History household members: spouse and other Smoking Status: Never smoker Exam Initial Vital Signs Initial Vital Signs: Vital Signs Temperature 99.5 F 04/09/19 16:15 Pulse Rate 97 H 04/09/19 16:15 Respiratory Rate 24 04/09/19 16:15 Blood Pressure 111/49 L 04/09/19 16:15 Pulse Oximetry 94 04/09/19 16:15 Const General: cooperative, comfortable and well developed Orientation: alert and awake Resp Effort & Inspection: normal respiratory effort Cardio Rate: regular rate GI Inspection: non-distended Palpation: tender Skin Lesions: no lesions Rashes: no rashes Neuro General: alert, awake and oriented x3 Cognition: normal cognition Speech: speech normal Extrem General: normal to inspection and capillary refill normal Psych Appearance: grossly normal and well kempt Course Orders Ordered: ED Orders 04/09/19 16:33 Basic Metabolic Panel Stat Complete Blood Count AUTO DIFF Stat Hepatic (Liver) Panel Stat Lactate (Lactic Acid) Stat Lipase Stat Partial Thromboplastin Time Stat Procalcitonin Stat Prothrombin Time INR Stat 04/09/19 16:55 Blood Culture Stat Acetaminophen (Tylenol) 650 mg PO Q6HR PRN PRN Reason: As Needed for Fever/Mild Pain Hydrocodone Bitart/Acetaminophen ([place] 5/325) 1 tab PO Q4HR PRN PRN Reason: Pain, Moderate (4-6) Bisacodyl (Dulcolax) 10 mg MN DAILY PRN PRN Reason: Constipation Dextrose (D50w) 25 gm IV PRN PRN; Protocol PRN Reason: Hypoglycemia Docusate Sodium (Colace) 100 mg PO BID JACOB Enoxaparin Sodium (Lovenox) 40 mg SUBCUT DAILY JACOB Hydromorphone HCl (Dilaudid) 0.5 mg IV Q6HR PRN PRN Reason: Pain, Moderate (4-6) Sodium Chloride (Normal Saline 0.9%) 1,000 mls @ 125 mls/hr IV CONT JACOB Last Admin: 04/09/19 16:36 Dose: 125 mls/hr Documented by: SCANAPO Sodium Chloride (Normal Saline 0.9%) 1,000 mls @ 100 mls/hr IV CONT JACOB Insulin Aspart (Novolog Flexpen) 0 unit SUBCUT ACHS JACOB; Protocol Insulin Aspart (Novolog Flexpen) 1 unit SUBCUT AC JACOB Levothyroxine Sodium (Synthroid) 100 mcg PO 0600 JACOB Ondansetron HCl (Zofran) 4 mg IV Q8HR PRN PRN Reason: Nausea And Vomiting Promethazine HCl (Phenadoz) 12.5 mg MN Q6HR PRN PRN Reason: Nausea And Vomiting Rosuvastatin Calcium (Crestor) 10 mg PO BEDTIME JACOB Vancomycin HCl (Vancomycin Per Pharmacy) 1 request MISC NOW ONE Stop: 04/09/19 17:34 Discontinued Medications Vancomycin HCl (Vancomycin) 1,000 mg in 200 mls @ 200 mls/hr IV NOW ONE Stop: 04/09/19 17:47 Last Admin: 04/09/19 16:59 Dose: 200 mls/hr Documented by: SCANAPO Vital Signs Vital signs: Vital Signs - 8 hr 04/09/19 16:15 Temperature 99.5 F Pulse Rate 97 H Respiratory Rate 24 Blood Pressure 111/49 L Pulse Oximetry 94 MDM - Recheck/Abnormal Lab/Rx Lab Data Attestation: I reviewed the patient's lab results. Result diagrams: 04/09/19 16:33 04/09/19 16:33 Labs: Lab Results 04/09/19 04/09/19 04/09/19 Range/Units 16:33 16:33 16:33 WBC 11.4 H (4.5-11.0) X10^3/uL RBC 4.56 (4.5-5.9) X10^6/uL Hgb 13.1 L (13.5-17.5) g/dL Hct 38.5 L (41-53) % MCV 84.3 (80-100) fL MCH 28.7 (26-34) PG MCHC 34.0 (30-36) % RDW 13.6 (11.6-14.8) % Plt Count 200 (150-400) X10^3/uL Neut % (Auto) 73.4 (50-75) % Lymph % (Auto) 9.4 L (25-40) % [place] % (Auto) 8.9 (3-14) % Eos % (Auto) 7.5 H (2-4) % Baso % (Auto) 0.8 (0-2) % Neut # (Auto) 8400 H (0281-0395) /uL Lymph # (Auto) 1100 (3691-7004) /uL [place] # (Auto) 1000 H (0-900) /uL Eos # (Auto) 900 H (0-450) /uL Baso # (Auto) 100 (0-100) /uL PT 13.6 H (10.1-12.7) SECONDS INR 1.2 (0.9-1.3) APTT 31 (26.4-36.2) SECONDS Sodium (137-145) mmol/L Potassium (3.4-5.1) mmol/L Chloride (98-107) mmol/L Carbon Dioxide (22-32) mmol/L BUN (9-20) mg/dL Creatinine (0.66-1.25) mg/dL Estimated GFR (>60) mL/min BUN/Creatinine Ratio (6-22) Glucose (70-100) mg/dL Lactate (0.7-2.1) mmol/L Calcium (8.4-10.2) mg/dL Total Bilirubin (0.2-1.3) mg/dL Conjugated Bilirubin (0.0-0.3) md/dL Unconjugated Bilirubin (0.0-1.1) mg/dL AST (17-59) IU/L ALT (21-72) IU/L Alkaline Phosphatase (38-126) U/L Lactate Dehydrogenase (313-618) U/L Total Protein (6.3-8.2) g/dL Albumin (3.5-5.0) g/dL Globulin (1.7-4.1) g/dL Albumin/Globulin Ratio (1.0-2.8) Lipase (23-300) U/L Procalcitonin 1.50 H (<0.5) ng/mL 04/09/19 04/09/19 04/09/19 Range/Units 16:33 16:33 16:33 WBC (4.5-11.0) X10^3/uL RBC (4.5-5.9) X10^6/uL Hgb (13.5-17.5) g/dL Hct (41-53) % MCV (80-100) fL MCH (26-34) PG MCHC (30-36) % RDW (11.6-14.8) % Plt Count (150-400) X10^3/uL Neut % (Auto) (50-75) % Lymph % (Auto) (25-40) % [place] % (Auto) (3-14) % Eos % (Auto) (2-4) % Baso % (Auto) (0-2) % Neut # (Auto) (0615-3202) /uL Lymph # (Auto) (5384-2169) /uL [place] # (Auto) (0-900) /uL Eos # (Auto) (0-450) /uL Baso # (Auto) (0-100) /uL PT (10.1-12.7) SECONDS INR (0.9-1.3) APTT (26.4-36.2) SECONDS Sodium 139 (137-145) mmol/L Potassium 4.3 (3.4-5.1) mmol/L Chloride 98 (98-107) mmol/L Carbon Dioxide 33 H (22-32) mmol/L BUN 24 H (9-20) mg/dL Creatinine 0.90 (0.66-1.25) mg/dL Estimated GFR > 60.0 (>60) mL/min BUN/Creatinine Ratio 26.7 H (6-22) Glucose 155 H (70-100) mg/dL Lactate 1.7 (0.7-2.1) mmol/L Calcium 9.4 (8.4-10.2) mg/dL Total Bilirubin 1.4 H (0.2-1.3) mg/dL Conjugated Bilirubin 0.0 (0.0-0.3) md/dL Unconjugated Bilirubin 0.6 (0.0-1.1) mg/dL AST 117 H (17-59) IU/L ALT 127 H (21-72) IU/L Alkaline Phosphatase 367 H (38-126) U/L Lactate Dehydrogenase 1545 H (313-618) U/L Total Protein 7.5 (6.3-8.2) g/dL Albumin 3.7 (3.5-5.0) g/dL Globulin 3.8 (1.7-4.1) g/dL Albumin/Globulin Ratio 1.0 (1.0-2.8) Lipase 95 (23-300) U/L Procalcitonin (<0.5) ng/mL MDM Narrative Medical decision making narrative: Patient's labs to include blood cultures from yesterday were repeated. He was given vancomycin here in the emergency department given the g positive cultures. Case was discussed with Dr. Sandhu from Internal Medicine who will admit the patient for antibiotics until repeat cultures are negative. Patient was informed of diagnosis and plan. Both he and his expressed understanding and agreement with plan. Discharge Plan Departure Patient Disposition: Admitted As Inpatient Clinical Impression: Blood bacterial culture positive, Lesion of liver Discharge Date/Time: 04/09/19 17:31 Admit Date/Time: 04/09/19 16:56 Admit Provider: Mirian Sandhu
[2019-04-09] MEDS: SODIUM CHLORIDE 0.9% 1,000 ML 125 ML IV (16:36)
[2019-04-09 16:46] LABS: Basophils Absolute Auto 100 /uL (0-100); Hematocrit 38.5 % (41-53); Hemoglobin 13.1 g/dL (13.5-17.5); Lymphocytes Absolute Auto 1100 /uL (1100-4500); Lymphocytes Percent Auto 9.4 % (25-40); Neutrophils Percent Auto 73.4 % (50-75)
[2019-04-09 16:48] LABS: Add Manual Diff / Slide Review NO; Basophils Percent Auto 0.8 % (0-2); Eosinophils Absolute Auto 900 /uL (0-450); Eosinophils Percent Auto 7.5 % (2-4); Mean Corpuscular Hemoglobin 28.7 PG (26-34); Mean Corpuscular Volume 84.3 fL (80-100); Monocytes Absolute Auto 1000 /uL (0-900); Monocytes Percent Auto 8.9 % (3-14); Neutrophils Absolute Auto 8400 /uL (1500-7000); Platelet Count 200 X10^3/uL (150-400); Red Blood Cell Count 4.56 X10^6/uL (4.5-5.9); Red Cell Distribution Width 13.6 % (11.6-14.8); White Blood Cell Count 11.4 X10^3/uL (4.5-11.0)
[2019-04-09 16:49] LABS: INR 1.2 (0.9-1.3); Prothrombin Time 13.6 SECONDS (10.1-12.7)
[2019-04-09 16:52] LABS: PTT Partial Thromboplastin Tim 31 SECONDS (26.4-36.2)
[2019-04-09 16:56] LABS: Alanine Aminotransferase 127 IU/L (21-72); Albumin 3.7 g/dL (3.5-5.0); Alkaline Phosphatase 367 U/L (38-126); Aspartate Aminotransferase 117 IU/L (17-59); BUN Creatinine Ratio 26.7 (6-22); Bilirubin Total 1.4 mg/dL (0.2-1.3); Bilirubin Unconjugated 0.6 mg/dL (0.0-1.1); Blood Urea Nitrogen 24 mg/dL (9-20); Calcium 9.4 mg/dL (8.4-10.2); Carbon Dioxide 33 mmol/L (22-32); Chloride 98 mmol/L (98-107); Estimated Glomerular Filt Rate > 60.0 mL/min (>60); Globulin 3.8 g/dL (1.7-4.1); Glucose 155 mg/dL (70-100); HEMOLYSIS 19 (0-50); Lipase 95 U/L (23-300); Potassium 4.3 mmol/L (3.4-5.1); Sodium 139 mmol/L (137-145); Total Protein 7.5 g/dL (6.3-8.2)
[2019-04-09 16:57] LABS: Lactate (Lactic Acid) 1.7 mmol/L (0.7-2.1)
[2019-04-09] MEDS: VANCOMYCIN 1,000 MG/200 ML PIGGYBACK 200 MG IV (16:59)
--- NOTE | 2019-04-09 17:25 | PC.NURSE ---
pt reports about 2 weeks ago after moving heavy items began having chest and abd pain, thought he pulled a muscle started taking medications for it and when the meds wore off pain was worse,a nd difficult to get on top of. pt also having episodes of cold sweats and shakes with mild fever.
[2019-04-09 17:28] LABS: Lactate Dehydrogenase 1545 U/L (313-618)
[2019-04-09] MEDS: ONDANSETRON 4 MG/2 ML INJ IV (18:19)
[2019-04-09] MEDS: SODIUM CHLORIDE 0.9% 1,000 ML 100 ML IV ×2 (18:21→22:37)
--- NOTE | 2019-04-09 18:45 | PM.HP.1 ---
History of Present Illness History of Present Illness Date Patient Seen: 04/09/19 Chief complaint: ANTIBIOTICS INFECTION Narrative: The patient is a 58-year-old male with a history of type 2 diabetes, hypothyroidism, hyperlipidemia, who was in his usual state of health until February of this year. Patient states at that time he developed pain which he describes in the right upper quadrant which is worse with deep inspiration. He also reports fever to 99, shaking chills, and sweats. He has had decreased appetite, weight loss. The patient was seen in the emergency room around March 23 for his chest pain. He underwent a CT a the chest which was negative for PE. The patient subsequently developed recurrence progressive symptoms. Specifically he had right upper quadrant pain which was severe with deep inspiration. Pain traveled across his abdomen. He had pain which he describes with deep breathing. He was again evaluated in the emergency department. The patient had a CT scan of the abdomen. The ultimate addendum read possible pancreatic mass and liver Mets. The patient was seen by Dr. Tyson with plans for liver biopsy. He did have blood cultures obtained in the emergency department which can became positive for gram-positive cocci. Patient was called back to the emergency department and admitted to the hospital for presumed bacteremia. Patient History Family & Social History Family History (Updated 04/09/19 @ 18:48 by Mirian Sandhu MD) Father Colon cancer Mother Ovarian cancer Sister Lymphoma Social History: household members spouse,other Prior Living Arrangements House Safety & Behavioral: Feels Safe in Current Yes Environment Been Physically Hurt or No Threatened By a Person Suicidal Ideation Description None Suicide Plan Description No Plan Tobacco & Substance use: Smoking Status Never smoker alcohol intake frequency 0-2 drinks per day Substance Use Type does not use Meds Home Medications and Allergies Home Medications Medication Instructions Recorded Confirmed Type levothyroxine 200 mcg PO DAILY 03/23/19 03/23/19 History metformin 500 mg PO BID 03/23/19 03/23/19 History multivitamin 1 tab PO DAILY 03/23/19 03/23/19 History rosuvastatin 10 mg PO DAILY 03/23/19 03/23/19 History tramadol 50 mg PO Q6-8H PRN #14 tab 03/23/19 Rx ondansetron 4 mg PO Q6H PRN #14 tab 04/08/19 Rx oxycodone-acetaminophen [Percocet] 1 tab PO Q4-6H PRN #7 tab 04/08/19 Rx Allergies Allergy/AdvReac Type Severity Reaction Status Date / Time No Known Drug Allergies Allergy Verified 03/23/19 19:46 Review of Systems Review of Systems Narrative: Low-grade fever, malaise, anorexia. Mild headache. Nausea, no vomiting, no melena, no hematemesis, no dysphagia or odynophagia, no dysuria hematuria or pyuria, no joint pains or rashes could no shortness of breath. ROS Unobtainable: All systems reviewed & are unremarkable except as noted in HPI and below Exam Vital Signs (past 8 hours): - 04/09/19 16:15 04/09/19 17:26 04/09/19 17:48 Temperature 99.5 F 99.9 F H Pulse Rate 97 H 74 91 H Respiratory Rate 24 15 16 Blood Pressure 111/49 L 117/65 133/66 Pulse Oximetry 94 100 99 Oxygen Delivery Method Room Air Narrative Exam Narrative: Pleasant male resting comfortably in no obvious distress HEENT: Normocephalic atraumatic, extraocular muscles are intact, sclerae anicteric, oropharynx is clear, neck is supple, no supraclavicular adenopathy, no thyromegaly, no anterior or posterior cervical adenopathy Lungs: Decreased breath sounds but clear to auscultation Cardiac exam: Regular rate and rhythm normal S1-S2 Abdomen: Soft nontender nondistended without palpable masses, mild right upper quadrant tenderness to palpation, no board-like rigidity, no abdominal bruit Extremities: No edema Neurological exam: Nonfocal Psychiatric exam: Patient is awake alert and appropriate, no delusions, no hallucinations, no tics, Musculoskeletal exam: Normal bulk and tone Skin exam: No lesions identified Objective Labs Result Diagrams: 04/09/19 16:33 04/09/19 16:33 Labs: Laboratory Results - last 24 hr 04/09/19 04/09/19 04/09/19 16:33 16:33 16:33 WBC 11.4 H RBC 4.56 Hgb 13.1 L Hct 38.5 L MCV 84.3 MCH 28.7 MCHC 34.0 RDW 13.6 Plt Count 200 Neut % (Auto) 73.4 Lymph % (Auto) 9.4 L [place] % (Auto) 8.9 Eos % (Auto) 7.5 H Baso % (Auto) 0.8 Neut # (Auto) 8400 H Lymph # (Auto) 1100 [place] # (Auto) 1000 H Eos # (Auto) 900 H Baso # (Auto) 100 PT 13.6 H INR 1.2 APTT 31 Sodium Potassium Chloride Carbon Dioxide BUN Creatinine Estimated GFR BUN/Creatinine Ratio Glucose Lactate Calcium Total Bilirubin Conjugated Bilirubin Unconjugated Bilirubin AST ALT Alkaline Phosphatase Lactate Dehydrogenase Total Protein Albumin Globulin Albumin/Globulin Ratio Lipase Procalcitonin 1.50 H 04/09/19 04/09/19 04/09/19 16:33 16:33 16:33 WBC RBC Hgb Hct MCV MCH MCHC RDW Plt Count Neut % (Auto) Lymph % (Auto) [place] % (Auto) Eos % (Auto) Baso % (Auto) Neut # (Auto) Lymph # (Auto) [place] # (Auto) Eos # (Auto) Baso # (Auto) PT INR APTT Sodium 139 Potassium 4.3 Chloride 98 Carbon Dioxide 33 H BUN 24 H Creatinine 0.90 Estimated GFR > 60.0 BUN/Creatinine Ratio 26.7 H Glucose 155 H Lactate 1.7 Calcium 9.4 Total Bilirubin 1.4 H Conjugated Bilirubin 0.0 Unconjugated Bilirubin 0.6 AST 117 H ALT 127 H Alkaline Phosphatase 367 H Lactate Dehydrogenase 1545 H Total Protein 7.5 Albumin 3.7 Globulin 3.8 Albumin/Globulin Ratio 1.0 Lipase 95 Procalcitonin Assessment & Plan Assessment & Plan narrative: Impression: 1. 58-year-old male admitted to the hospital for bacteremia. Patient has blood cultures growing gram-positive cocci. He reports fever, chills, rigors, sweats. This is concerning for ongoing bacterial infection. Patient has low-grade elevated white count, mild inflammatory markers are elevated as well, concern for possible sepsis. The patient will be admitted to the hospital. He will be treated with empiric antibiotics. Will await final bacterial: 2. Probable pancreatic cancer. A CT scan of the abdomen revealed low-grade liver lesions, pancreatic mass, this is concerning for possible primary pancreatic carcinoma. Arrangements will be made for liver biopsy for definitive tissue diagnosis. Consider CA 19 9. 3. Type 2 diabetes, present on admission, will obtain hemoglobin A1c. Will hold his metformin, will start low-dose insulin sliding scale. 4. Hyperlipidemia, will continue resume a statin. 5. Hypothyroidism, secondary to prior radioactive iodine. Patient will continue on levothyroxine. Code status patient indicates he would like to be a full code. Will continue further workup as described above. Quality VTE Deep Vein Thrombosis/Pulmonary Embolism Present on Admission: No
[2019-04-09 19:15] LABS: Hemoglobin A1C% w Est Avg Glu 7.7 % (4.0-6.0)
[2019-04-09] MEDS: HYDROMORPHONE 0.5 MG INJ IV (20:03)
[2019-04-09] MEDS: CEFTRIAXONE 2 GM/50 ML FROZ.PIGGY IV (20:04)
[2019-04-09] MEDS: ROSUVASTATIN 10 MG TABLET PO (20:05)
[2019-04-09] MEDS: HYDROCODONE/ACET 5/325 TABLET 1 TAB PO (20:22)
[2019-04-10] VITALS (10 sets, daily range): BP systolic 95–134; BP diastolic 56–62; PULSE 67–90; RESP 16–22; TEMP 36.6–38.8; O2SAT 87–96
[2019-04-10] MEDS: HYDROCODONE/ACET 5/325 TABLET 1 TAB PO ×3 (00:33→05:15)
[2019-04-10] MEDS: SODIUM CHLORIDE 0.9% 1,000 ML 100 ML IV ×2 (03:43→16:11)
[2019-04-10] MEDS: VANCOMYCIN 1,500 MG/300 ML FROZ.PIGGY 200 MG IV ×2 (04:17→16:32)
[2019-04-10] MEDS: ONDANSETRON 4 MG/2 ML INJ IV (05:16)
--- NOTE | 2019-04-10 05:37 | PC.NURSE ---
Pt with positive blood cultures, gram-positive cocci. Pt Tmax 101.9, BP normotensive HR 70's. No chills or night sweats. Pt on Vanco 1.5g and Ceftriaxone. Notified provider of new temp, clarified no new orders for antibiotics. Provider did order one time additional dose of [place] 325/5. Monitoring pt liver enzymes. Reports pain throughout abdomen, but mostly centered in upper quadrants. Rates 5-6/10, increased with deep breaths. Pt states he feels better since admit and is looking forward to being able to tolerate food for first time in two weeks. Plan for liver biopsy, no time or date yet. UOP dark teressa, clear. Denies dysuria. On IVF of NS @100cc/hr. Supportive family at bedside.
[2019-04-10] MEDS: LEVOTHYROXINE 100 MCG TABLET PO (06:22)
[2019-04-10 06:44] LABS: Add Manual Diff / Slide Review NO; Basophils Absolute Auto 100 /uL (0-100); Basophils Percent Auto 0.9 % (0-2); Eosinophils Absolute Auto 900 /uL (0-450); Eosinophils Percent Auto 7.9 % (2-4); Hematocrit 36.1 % (41-53); Lymphocytes Absolute Auto 1200 /uL (1100-4500); Mean Corpuscular HGB Conc 33.2 % (30-36); Mean Corpuscular Hemoglobin 28.4 PG (26-34); Mean Corpuscular Volume 85.7 fL (80-100); Monocytes Absolute Auto 1000 /uL (0-900); Monocytes Percent Auto 9.3 % (3-14); Neutrophils Absolute Auto 7900 /uL (1500-7000); Neutrophils Percent Auto 70.9 % (50-75); Platelet Count 179 X10^3/uL (150-400); Red Blood Cell Count 4.21 X10^6/uL (4.5-5.9); Red Cell Distribution Width 13.9 % (11.6-14.8); White Blood Cell Count 11.1 X10^3/uL (4.5-11.0)
[2019-04-10 06:50] LABS: Alanine Aminotransferase 125 IU/L (21-72); Albumin 3.2 g/dL (3.5-5.0); Albumin Globulin Ratio 0.9 (1.0-2.8); Alkaline Phosphatase 314 U/L (38-126); Aspartate Aminotransferase 117 IU/L (17-59); BUN Creatinine Ratio 21.3 (6-22); Bilirubin Total 1.3 mg/dL (0.2-1.3); Blood Urea Nitrogen 17 mg/dL (9-20); Calcium 8.6 mg/dL (8.4-10.2); Carbon Dioxide 32 mmol/L (22-32); Chloride 99 mmol/L (98-107); Estimated Glomerular Filt Rate > 60.0 mL/min (>60); Globulin 3.4 g/dL (1.7-4.1); Glucose 129 mg/dL (70-100); HEMOLYSIS < 15 (0-50); Potassium 4.5 mmol/L (3.4-5.1); Sodium 136 mmol/L (137-145); Total Protein 6.6 g/dL (6.3-8.2)
[2019-04-10] MEDS: INSULIN ASPART 100 UNIT/ML INSULN PEN SUBCUT ×4 (09:01→12:35)
[2019-04-10] MEDS: DOCUSATE 100 MG CAPSULE PO ×2 (09:03→20:38)
[2019-04-10] MEDS: ENOXAPARIN 40 MG/0.4 ML SYRINGE SUBCUT (09:03)
--- NOTE | 2019-04-10 09:20 | CM.DANOTE ---
Addendum entered by Lydia Brown R.N. 04/10/19 11:22: Incorrect documentation below. Patient does not have history of drinking several glasses of wine a day, this was pertaining to a different patient. Addendum entered by Lydia Brown R.N. 04/10/19 10:44: Patient has not yet had liver biopsy, this will depend upon what his blood cultures show. Marcelle, from oncology, will be going in and talking to patient and , for they are anxious about what is happening, and the soonest that he will be able to get in to see oncology. Original Note: DCP: Case received, EMR reviewed and met with patient. Introduced self and role. Patient's , Ava, also at bedside, along with patient's sister. Was able to obtain baseline information regarding health and living situation from patient. DCP assessment/template completed with information currently available. Patient is a 58 year old male who admitted yesterday afternoon to the care of the hosptalist team. PCP: Dr. Tyson. Payer: confirmed: [employer]. Patient came to the hospital secondary to abdominal pain. Patient had recently had a liver biopsy, and was noted to have a mass on his pancreas. Patient also has history of diabetes. Patient had a culture, and developed bacteremia. He is here for IV antibiotics. Patient resides in [place] with his spouse, and recently started working for [employer]. He is independent at home. He drinks several glasses of wine at night, but denies ever having any type of withdrawals. P: DCP to continue to follow closely. Patient should be able to go home when he is medically stable. Lydia Brown RN/Contact Agent
[2019-04-10] MEDS: HYDROMORPHONE 0.5 MG INJ IV (09:22)
--- NOTE | 2019-04-10 12:10 | ONC.MSW ---
Description: T/C-re: patient status, plan for scheduling initial consult Activity: Pt is going to be having more lab tests done later this evening to determine if his infection has cleared or not yet, and if he is clear, they are hoping to get a biopsy in the next few days. Dr. Alas will plan to see him after he is discharged, rather than an inpt consult at this time. DIRECTOR PRESALES offered emotional and coping support for as she renetta with extreme anxiety in waiting for next steps from the inpt team. DIRECTOR PRESALES will notify scheduling that can be called later this afternoon (after 2:00pm) for the next available appt. with Dr. Alas.
[2019-04-10] MEDS: OXYCODONE 5 MG/5 ML ORAL SOLUTION 10 MG PO ×3 (12:32→21:18)
--- NOTE | 2019-04-10 16:14 | PM.PN.1 ---
Subjective Subjective Date Patient Seen: 04/10/19 Interval history: The patient is a 58-year-old male who was admitted to the hospital yesterday for bacteremia. The patient was seen and evaluated in the emergency department for chest and then abdominal pain. Blood cultures were obtained in the emergency department and were positive for gram-positive cocci. The organisms have not been definitively identified. In addition the patient had a CT of the abdomen and pelvis this confirmed a lesion in the pancreas with probable Mets to the liver. Patient was seen by Dr. Tyson with plans for an outpatient liver biopsy on Monday. The patient continues to report intermittent abdominal pain. He also has pain in his abdomen with deep inspiration. It he has been having shaking chills rigors and fever. He has had no diarrhea, he has a poor appetite, no vomiting. His is at the bedside and I have answered questions for her as well. Exam Vital Signs (past 8 hours): - 04/10/19 12:00 Temperature 100.2 F H Pulse Rate 79 Respiratory Rate 18 Blood Pressure 134/62 Pulse Oximetry 95 Oxygen Delivery Method Room Air Oxygen Flow Rate 0 Narrative Exam Narrative: Pleasant gentleman resting comfortably in no obvious distress Lungs: Clear to auscultation Cardiac exam: Regular rate and rhythm normal S1-S2 Abdomen: Soft mildly tender in the right upper quad no rebound tender no board-like rigidity no masses palpable Extremities: No edema Objective Labs Result Diagrams: 04/10/19 06:05 04/10/19 06:05 Labs: Laboratory Results - last 24 hr 04/09/19 04/09/19 04/09/19 16:33 16:33 16:33 WBC 11.4 H RBC 4.56 Hgb 13.1 L Hct 38.5 L MCV 84.3 MCH 28.7 MCHC 34.0 RDW 13.6 Plt Count 200 Neut % (Auto) 73.4 Lymph % (Auto) 9.4 L [place] % (Auto) 8.9 Eos % (Auto) 7.5 H Baso % (Auto) 0.8 Neut # (Auto) 8400 H Lymph # (Auto) 1100 [place] # (Auto) 1000 H Eos # (Auto) 900 H Baso # (Auto) 100 PT 13.6 H INR 1.2 APTT 31 Sodium Potassium Chloride Carbon Dioxide BUN Creatinine Estimated GFR BUN/Creatinine Ratio Glucose Hemoglobin A1c Lactate Calcium Total Bilirubin Conjugated Bilirubin Unconjugated Bilirubin AST ALT Alkaline Phosphatase Lactate Dehydrogenase Total Protein Albumin Globulin Albumin/Globulin Ratio Lipase Procalcitonin 1.50 H 04/09/19 04/09/19 04/09/19 16:33 16:33 16:33 WBC RBC Hgb Hct MCV MCH MCHC RDW Plt Count Neut % (Auto) Lymph % (Auto) [place] % (Auto) Eos % (Auto) Baso % (Auto) Neut # (Auto) Lymph # (Auto) [place] # (Auto) Eos # (Auto) Baso # (Auto) PT INR APTT Sodium 139 Potassium 4.3 Chloride 98 Carbon Dioxide 33 H BUN 24 H Creatinine 0.90 Estimated GFR > 60.0 BUN/Creatinine Ratio 26.7 H Glucose 155 H Hemoglobin A1c Lactate 1.7 Calcium 9.4 Total Bilirubin 1.4 H Conjugated Bilirubin 0.0 Unconjugated Bilirubin 0.6 AST 117 H ALT 127 H Alkaline Phosphatase 367 H Lactate Dehydrogenase 1545 H Total Protein 7.5 Albumin 3.7 Globulin 3.8 Albumin/Globulin Ratio 1.0 Lipase 95 Procalcitonin 04/09/19 04/10/19 04/10/19 16:33 06:05 06:05 WBC 11.1 H RBC 4.21 L Hgb 12.0 L Hct 36.1 L MCV 85.7 MCH 28.4 MCHC 33.2 RDW 13.9 Plt Count 179 Neut % (Auto) 70.9 Lymph % (Auto) 11.0 L [place] % (Auto) 9.3 Eos % (Auto) 7.9 H Baso % (Auto) 0.9 Neut # (Auto) 7900 H Lymph # (Auto) 1200 [place] # (Auto) 1000 H Eos # (Auto) 900 H Baso # (Auto) 100 PT INR APTT Sodium 136 L Potassium 4.5 Chloride 99 Carbon Dioxide 32 BUN 17 Creatinine 0.80 Estimated GFR > 60.0 BUN/Creatinine Ratio 21.3 Glucose 129 H Hemoglobin A1c 7.7 H Lactate Calcium 8.6 Total Bilirubin 1.3 Conjugated Bilirubin Unconjugated Bilirubin AST 117 H ALT 125 H Alkaline Phosphatase 314 H Lactate Dehydrogenase Total Protein 6.6 Albumin 3.2 L Globulin 3.4 Albumin/Globulin Ratio 0.9 L Lipase Procalcitonin Assessment & Plan Assessment & Plan narrative: 1. Gram-positive bacteremia, etiology unclear, awaiting final blood culture results. Patient will continue on IV ceftriaxone and IV vancomycin until organism is identified. Of note the patient has had a colonoscopy recently within the year and no evidence of mass. Once the organism is identified consider cardiac echo further evaluation. Repeat blood cultures are still pending 2. Pancreatic mass with probable liver mets. Anticipate liver biopsy for definitive diagnosis once the patient is no longer bacteremic. 3. Type 2 diabetes, will continue sliding scale insulin 4. Hypothyroid continue levothyroxine Quality VTE Deep Vein Thrombosis/Pulmonary Embolism Present on Admission: No
[2019-04-10] MEDS: CEFTRIAXONE 2 GM/50 ML FROZ.PIGGY IV (19:28)
[2019-04-10] MEDS: ROSUVASTATIN 10 MG TABLET PO (20:38)
[2019-04-11] VITALS (8 sets, daily range): BP systolic 106–122; BP diastolic 44–68; PULSE 75–89; RESP 16–20; TEMP 36.7–37.7; O2SAT 91–96
[2019-04-11] MEDS: OXYCODONE IR 10 MG TABLET PO ×5 (02:49→18:20)
[2019-04-11] MEDS: SODIUM CHLORIDE 0.9% 1,000 ML 100 ML IV ×2 (02:52→14:35)
--- NOTE | 2019-04-11 02:59 | PC.NURSE ---
Fiscal Services Manager Note: 0030: Awake, resting in bed. resting at bedside. Vital signs stable. IV in place in rt AC with NS infusing at 100cc/hr. Remains on telemetry. Pt states his pain is minimal at this time and is not in need of pain medication. 0250: Awake, states his pain is 6-7/10. Medicated for pain with Oxycodone 10mg po.
[2019-04-11] MEDS: VANCOMYCIN 1,500 MG/300 ML FROZ.PIGGY 200 MG IV (05:35)
[2019-04-11] MEDS: LEVOTHYROXINE 100 MCG TABLET PO (05:36)
[2019-04-11 07:00] LABS: Add Manual Diff / Slide Review NO; Basophils Absolute Auto 100 /uL (0-100); Basophils Percent Auto 1.2 % (0-2); Eosinophils Absolute Auto 800 /uL (0-450); Eosinophils Percent Auto 6.5 % (2-4); Hematocrit 34.7 % (41-53); Hemoglobin 11.5 g/dL (13.5-17.5); Lymphocytes Absolute Auto 1200 /uL (1100-4500); Lymphocytes Percent Auto 10.3 % (25-40); Mean Corpuscular HGB Conc 33.1 % (30-36); Mean Corpuscular Hemoglobin 28.4 PG (26-34); Mean Corpuscular Volume 85.6 fL (80-100); Monocytes Absolute Auto 1200 /uL (0-900); Monocytes Percent Auto 10.5 % (3-14); Neutrophils Absolute Auto 8200 /uL (1500-7000); Neutrophils Percent Auto 71.5 % (50-75); Platelet Count 176 X10^3/uL (150-400); Red Blood Cell Count 4.05 X10^6/uL (4.5-5.9); Red Cell Distribution Width 13.5 % (11.6-14.8); White Blood Cell Count 11.5 X10^3/uL (4.5-11.0)
[2019-04-11 07:04] LABS: Alanine Aminotransferase 119 IU/L (21-72); Albumin Globulin Ratio 0.9 (1.0-2.8); Alkaline Phosphatase 311 U/L (38-126); Aspartate Aminotransferase 116 IU/L (17-59); BUN Creatinine Ratio 18.6 (6-22); Bilirubin Total 1.6 mg/dL (0.2-1.3); Blood Urea Nitrogen 13 mg/dL (9-20); Calcium 8.2 mg/dL (8.4-10.2); Carbon Dioxide 30 mmol/L (22-32); Chloride 100 mmol/L (98-107); Estimated Glomerular Filt Rate > 60.0 mL/min (>60); Globulin 3.4 g/dL (1.7-4.1); Glucose 110 mg/dL (70-100); HEMOLYSIS < 15 (0-50); Potassium 4.5 mmol/L (3.4-5.1); Sodium 136 mmol/L (137-145); Total Protein 6.4 g/dL (6.3-8.2)
[2019-04-11 07:14] LABS: INR 1.4 (0.9-1.3)
[2019-04-11] MEDS: ENOXAPARIN 40 MG/0.4 ML SYRINGE SUBCUT (08:51)
[2019-04-11] MEDS: DOCUSATE 100 MG CAPSULE PO ×2 (08:51→20:21)
--- NOTE | 2019-04-11 11:28 | PC.NURSE ---
Pt showered, walked in halls with Spouse and then returned to bed. Pt refused bed rails up and states he will call for assistance as needed.
[2019-04-11] MEDS: INSULIN ASPART 100 UNIT/ML INSULN PEN SUBCUT ×2 (12:13)
[2019-04-11 16:42] LABS: Cancer (Carbohydrate) Ag 19-9 2928 U/mL (< 34)
--- NOTE | 2019-04-11 17:26 | DI.ECHO.S_ITS ---
[facility] +---------+ [facility] +---------+ : : [address] [place] : : : : [id number] : : : : Phone: [phone] Echocardiogram Report + + :Name: CLAUDIA CAMARENA Study Date: 04/12/2019 Height: 71 in : :[facility] Exam Location: [facility] Weight: 284 lb : : Gender: Male BSA: 2.4 m2 : :: 1960 Age: 58 yrs BP: 114/70 mmHg: :Reason For Study: BACTEREMIA : : Performed By: Benny العلي : :Referring: RADHAMES NAZARIO : + + Interpretation Summary Left ventricular wall thickness is mildly increased. The ejection fraction is estimated to be 60-65%. The aortic arch is at the upper limits of normal in size. There is no significant valvular heart disease. Procedure: A two-dimensional transthoracic echocardiogram with color flow and Doppler was performed. The study quality was technically adequate. There is no prior echocardiogram noted for this patient. The patient was in normal sinus rhythm during the exam. Left Ventricle: The left ventricle is normal in size. Left ventricular wall thickness is mildly increased. The ejection fraction is estimated to be 60- 65%. There are no focal wall motion abnormalities. Right Ventricle: The right ventricle is not well visualized. The right ventricle grossly appears normal in size with probable normal systolic function. Atria: Both atria are normal in size. The interatrial septum is intact with no evidence for an atrial septal defect. Mitral Valve: The mitral valve is normal in structure and function. There is no mitral regurgitation noted. Aortic Valve: The aortic valve is trileaflet. The aortic valve opens well. No aortic regurgitation is present. Tricuspid Valve: The tricuspid valve is normal in structure and function. No tricuspid regurgitation. Pulmonary artery pressures cannot be estimated because of the lack of a measurable TR jet velocity. Pulmonic Valve: The pulmonic valve is normal in structure and function. There is trace pulmonic regurgitation. Great Vessels: The aortic root is normal size. The dimensions of the ascending aorta are normal. The aortic arch is at the upper limits of normal in size. The pulmonary artery is normal size. The IVC is of normal diameter and collapses less than 50% with a sniff. This suggests a right atrial pressure of 8 mm Hg. Pericardium/ Pleura There is no pericardial effusion. There is no pleural effusion. MMode/2D Measurements & Calculations LVIDd: 5.4 cm LVOT diam: 2.4 cm LVIDs: 3.7 cm Ao root diam: 3.5 cm FS: 30.6 % Aortic Jxn: 3.0 cm EPSS: 0.54 cm asc Aorta Diam: 3.3 cm IVSd: 1.1 cm Ao Arch Diam (Prox Trans): 3.1 cm LVPWd: 1.1 cm LV [place]. diameter/BSA (cm/m^2): 2.2 LV sys. diameter/BSA (cm/m^2): 1.5 LA dimension: 4.1 cm RA long axis: 4.7 cm LA A2 area: 24.4 cm2 RA area: 12.6 cm2 LA A4 area: 24.5 cm2 RA vol: 28.8 ml LA length (vol): 6.3 cm RA : 11.8 ml/m2 LA vol: 81.3 ml IVC diam: 0.82 cm LA vol index: 33.2 ml/m2 Doppler Measurements & Calculations Ao V2 max: 158.2 cm/sec LVOT Max Federico: 124.1 cm/sec Ao V2 mean: 121.8 cm/sec LV V1 max P.2 mmHg Ao max P.0 mmHg LV V1 VTI: 26.0 cm Ao mean P.3 mmHg ELFEGO(I,D): 3.5 cm2 Ao V2 VTI: 33.1 cm ELFEGO(V,D): 3.5 cm2 sev ratio: 0.78 ELFEGO indexed to BSA (cm^2/m^2): 1.4 MV E max federico: 99.0 cm/sec PA V2 max: 99.9 cm/sec MV A max federico: 69.0 cm/sec PA V2 mean: 69.5 cm/sec MV E/A: 1.4 PA mean P.1 mmHg Med Peak E' Federico: 8.6 cm/sec PA pr(Accel): 51.6 mmHg E/E' med: 11.6 PA Accel Time: 0.05 sec Lat Peak E' Federico: 12.4 cm/sec E/E' lat: 8.0 E/e' average: 9.8 MV dec time: 0.13 sec SV(LVOT): 115.9 ml Reading Physician:02:48 PM
[2019-04-11] MEDS: CEFTRIAXONE 2 GM/50 ML FROZ.PIGGY IV (18:18)
--- NOTE | 2019-04-11 18:26 | P.PN_ITS ---
Subjective Subjective Date Patient Seen: 04/11/19 Interval history: The patient is a 58-year-old male who presented to the hospital for gram-positive bacteremia. Bacterial cultures are now growing strep para sanguinous, strep viridans. Etiology of the source of the strep viridans is unclear. Patient reports months of shaking chills and fever. He continues to have low-grade fever here in the hospital. He initially was treated with ceftriaxone and vancomycin. The vancomycin has since been discontinued. In addition the patient was evaluated in the emergency room and found to have on CT scan a pancreatic head mass. He also was found to have multiple lesions in his liver suggestive of metastatic disease. Patient still has a poor appetite. He reports he continues to have pain. The pain medications last 3-1/2 hours and then he has discomfort. Pain is worse with deep inspiration. Pain is in the right upper quadrant. Exam Vital Signs (past 8 hours): - 04/11/19 12:00 04/11/19 16:57 Temperature 99.9 F H Pulse Rate 83 Respiratory Rate 16 Blood Pressure 106/44 L Pulse Oximetry 94 Oxygen Delivery Method Room Air Oxygen Flow Rate 0 Narrative Exam Narrative: Obese male lying in bed somewhat uncomfortable Lungs: Clear to auscultation Cardiac exam: Regular rate and rhythm normal S1-S2 Abdomen: Soft mildly tender in the right upper quadrant no palpable mass no board-like rigidity no rebound tender Extremities: No edema Skin: No lesion Psychiatric exam: Patient is awake alert and appropriate Objective Labs Result Diagrams: 04/11/19 06:25 04/11/19 06:25 Labs: Laboratory Results - last 24 hr 04/09/19 04/11/19 04/11/19 16:33 06:25 06:25 WBC 11.5 H RBC 4.05 L Hgb 11.5 L Hct 34.7 L MCV 85.6 MCH 28.4 MCHC 33.1 RDW 13.5 Plt Count 176 Neut % (Auto) 71.5 Lymph % (Auto) 10.3 L [place] % (Auto) 10.5 Eos % (Auto) 6.5 H Baso % (Auto) 1.2 Neut # (Auto) 8200 H Lymph # (Auto) 1200 [place] # (Auto) 1200 H Eos # (Auto) 800 H Baso # (Auto) 100 PT 16.0 H INR 1.4 H Sodium Potassium Chloride Carbon Dioxide BUN Creatinine Estimated GFR BUN/Creatinine Ratio Glucose Calcium Total Bilirubin AST ALT Alkaline Phosphatase Total Protein Albumin Globulin Albumin/Globulin Ratio CA 19-9 Antigen 2928 H 04/11/19 06:25 WBC RBC Hgb Hct MCV MCH MCHC RDW Plt Count Neut % (Auto) Lymph % (Auto) [place] % (Auto) Eos % (Auto) Baso % (Auto) Neut # (Auto) Lymph # (Auto) [place] # (Auto) Eos # (Auto) Baso # (Auto) PT INR Sodium 136 L Potassium 4.5 Chloride 100 Carbon Dioxide 30 BUN 13 Creatinine 0.70 Estimated GFR > 60.0 BUN/Creatinine Ratio 18.6 Glucose 110 H Calcium 8.2 L Total Bilirubin 1.6 H AST 116 H ALT 119 H Alkaline Phosphatase 311 H Total Protein 6.4 Albumin 3.0 L Globulin 3.4 Albumin/Globulin Ratio 0.9 L CA 19-9 Antigen Assessment & Plan Assessment & Plan narrative: 1. 58-year-old male admitted to the hospital with g positive bacteremia. Blood cultures are growing strep parasanguinous. This is a strep viridans species. The etiology of this source of this strep bacteremia is unclear. Typical sources include liver abscess, endocarditis, or other sources. The patient will get a cardiac echo to rule out endocarditis. If the 2D echo is negative and no source is found would consider transesophageal echo to definitively rule out endocarditis. Repeat blood cultures have been obtained. Cultures are negative thus far. Will continue IV ceftriaxone at this time. 2. Pancreatic mass with probable metastatic disease. CT scan suggestive of pancreatic cancer with liver Mets. However given bacteremia possibility of liver abscess is also probable. However based on CT scan finding this seems unlikely. The patient is scheduled for a CT-guided biopsy of his liver. I have requested that this be sent for pathology and Gram stain and culture. The risk and benefit of the procedure has been discussed with the family and they would like to proceed. 3. Type 2 diabetes, patient's metformin has been held. He continues to have poor appetite and weight loss. Will continue basal bolus insulin 4. Hyperlipidemia, continue statin 5. Hypothyroid, following radioactive iodine uptake, will continue levo thyroxine Will need to determine duration of antibiotic therapy. Hopefully echocardiogram and liver biopsy will determine the source of bacteremia to delineate and outlin e the length of antibiotic treatment. Will place a PICC line S patient will need long-term antibiotics. Quality VTE Deep Vein Thrombosis/Pulmonary Embolism Present on Admission: No
[2019-04-11] MEDS: ROSUVASTATIN 10 MG TABLET PO (20:21)
[2019-04-11] MEDS: OXYCODONE ER 10 MG TAB PO (20:21)
[2019-04-12] VITALS (17 sets, daily range): BP systolic 114–138; BP diastolic 56–77; PULSE 79–92; RESP 16–18; TEMP 36.2–38.3; O2SAT 91–98
--- NOTE | 2019-04-12 | DI.CT.S_ITS ---
PROCEDURE: CT BIOPSY LIVER Sedation analgesia for 45 minutes. INDICATIONS: LIVER MASS TECHNIQUE: The indications, alternatives, benefits, risks, and possible complications of the procedure were communicated to the patient. Informed written consent from the patient was obtained and placed in the chart. Continuous EKG and hemodynamic monitoring was started by trained personnel. The patient was brought to the CT suite and pottery machine operator spiral CT imaging was performed with localization grid. The appropriate site for percutaneous access to the biopsy target was marked, was prepped and draped sterilely, and was infused with local anaesthesia. Under CT guidance, a core biopsy trocar and needle set was advanced to the biopsy target, and specimen(s) were obtained. The trocar and needle were then removed, and the patient was sent for post-procedure monitoring. COMPARISON: None. FINDINGS: Biopsy site: Liver Needle: 20 gauge biopsy needle with introducer trocar. Number of passes: 4 Medications: 1% lidocaine for local anaesthesia. IV Fentanyl and Versed for conscious sedation for approximately 45 minutes (see nursing record). Complications: None. IMPRESSION: Successful CT-guided biopsy of liver mass. Dictated by: Mark Anthony Yan M.D. on 04/12/2019 at 12:28 Approved by: Mark Anthony Yan M.D. on 04/12/2019 at 12:35
--- NOTE | 2019-04-12 | PATH_ITS ---
[facility] Accession Number: [id number] . 01 Material submitted: . liver - LIVER . 02 Diagnosis: Liver, Needle Core Biopsy: Poorly differentiated malignant neoplasm. Immunohistochemistry studies pending; results will be reported as an addendum. MRV/04/15/2019 . 02 Comment: QA performed by Dr. Audelia Irene. . Message left with Dr. Tyson's server systems administrator, Jaimie, regarding results and possible need for molecular studies at approximately 1:55 p.m. on 04-15-19 . 02 Electronically signed: . Tamiko Espinosa MD, Pathologist NPI- [id number] . 01 Gross description: . LIVER: Received in formalin are 4 fragment(s) of daniel, soft tissue measuring 0.1 x 0.1 x 0.1 cm to 0.7 x 0.1 x 0.1 cm which is entirely submitted and submitted entirely in 1 cassette(s) /DMC /DMC . 02 Pathologist provided ICD-10: C78.7 . 02 CPT . 832747 Performed at: 01 [facility] [address], [place], [place] [id number] MD Charbel Isaac MD Phone: [phone] Performed at: 02 [facility] [address] [place], [place] [id number] MD Audelia Irene MD Phone: [phone]
[2019-04-12] MEDS: OXYCODONE IR 10 MG TABLET PO ×4 (01:16→20:34)
[2019-04-12] MEDS: LEVOTHYROXINE 100 MCG TABLET PO (05:36)
[2019-04-12 06:24] LABS: Add Manual Diff / Slide Review NO; Basophils Absolute Auto 100 /uL (0-100); Basophils Percent Auto 0.7 % (0-2); Eosinophils Absolute Auto 700 /uL (0-450); Eosinophils Percent Auto 5.8 % (2-4); Hematocrit 33.3 % (41-53); Hemoglobin 11.1 g/dL (13.5-17.5); Lymphocytes Absolute Auto 1200 /uL (1100-4500); Lymphocytes Percent Auto 9.6 % (25-40); Mean Corpuscular HGB Conc 33.2 % (30-36); Mean Corpuscular Hemoglobin 28.2 PG (26-34); Mean Corpuscular Volume 84.9 fL (80-100); Monocytes Absolute Auto 1500 /uL (0-900); Monocytes Percent Auto 11.7 % (3-14); Neutrophils Absolute Auto 9100 /uL (1500-7000); Neutrophils Percent Auto 72.2 % (50-75); Platelet Count 187 X10^3/uL (150-400); Red Blood Cell Count 3.92 X10^6/uL (4.5-5.9); Red Cell Distribution Width 13.7 % (11.6-14.8); White Blood Cell Count 12.6 X10^3/uL (4.5-11.0)
[2019-04-12 06:36] LABS: BUN Creatinine Ratio 16.3 (6-22); Blood Urea Nitrogen 13 mg/dL (9-20); Carbon Dioxide 27 mmol/L (22-32); Chloride 98 mmol/L (98-107); Estimated Glomerular Filt Rate > 60.0 mL/min (>60); Glucose 96 mg/dL (70-100); HEMOLYSIS < 15 (0-50); Potassium 4.4 mmol/L (3.4-5.1); Sodium 135 mmol/L (137-145)
[2019-04-12] MEDS: OXYCODONE ER 10 MG TAB PO ×2 (08:38→20:30)
--- NOTE | 2019-04-12 08:53 | PC.NURSE ---
Pt to Radiology for liver biopsy via bed by transport with Chart.
--- NOTE | 2019-04-12 08:53 | CM.DPC ---
DCP: continued: case received, EMR reviewed. DC order noted with date of 03/11 evening but nothing else indicating this. Dr. Sandhu's note of last evening states that pt will need fpc IV antibiotics and that a PICC line will be placed today. Is unclear at this time who will follow today for the hospitalist team. Checked in with RN coordinator Karson. He says ECHO is also pending. He was not aware of the d/c order. ceramic worker Marcelle Worrell will be on today in her role with CM dept. If her time allows will have her continue to follow up with this pt and his . Her note of yesterday is reviewed.
--- NOTE | 2019-04-12 10:13 | PC.NURSE ---
Addendum entered by Shira Londono R.N. 04/12/19 13:07: Pt resting in bed, visiting with Spouse and Friends at the bedside. Pt denies needs at this time. Original Note: Pt back to room from Radiology/liver biopsy. Pt denies pain or nausea, is having ice chips, O2 sat 96% RA. Continuous pulse ox in place. Spouse at the bedside. Sandbag in place on Pt abdomen. Pt understands that sandbag must stay in place for 3 hours.
--- NOTE | 2019-04-12 12:10 | DI.RAD.S_ITS ---
PROCEDURE: XR CHEST FOR PICC 1V INDICATIONS: line placement+ COMPARISON: [facility], CR, XR CHEST 2V, 04/08/2019, 7:11. FINDINGS: PICC was placed by the intravenous therapy team from the left side. Fluoroscopic spot film demonstrates tip of PICC in the distal SVC. IMPRESSION: Tip of PICC lies within the distal SVC. Dictated by: Ashley Weiss MD, PhD on 04/12/2019 at 12:48 Approved by: Ashley Weiss MD, PhD on 04/12/2019 at 12:49
[2019-04-12] MEDS: fentaNYL 100 MCG/2 ML INJ IV (15:00)
[2019-04-12] MEDS: MIDAZOLAM 5 MG/ML VIAL 1 MG IV (15:08)
--- NOTE | 2019-04-12 15:37 | CM.DPC ---
Discharge planning cont. Pt had CT guided liver biopsy today, waiting for the pathology as well as the results of the echocardiogram to determine the length of outpatient IV antibiotic treatment. PICC has already been placed in anticipation of this. He continues with poor appetite, weight loss and pain issues. YARN WEIGHT AND STRENGTH TESTER explained the options available for outpatient, home IV abx treatement, and he indicated [facility] as his choice to pursue for insurance eligibility. The length of time for this treatment will depend completely on the results of the bx and echo. Plan: F/u with referral to [facility]. Monitor for additional outpatient needs through the weekend.
--- NOTE | 2019-04-12 15:45 | P.PN_ITS ---
Subjective Subjective Date Patient Seen: 04/12/19 Interval history: He is seen today to follow up the strep bacteremia, the hepatic masses, the pancreatic mass, his ongoing antibiotic treatment. The strep is pansensitive, currently treated with ceftriaxone. An echocardiogram was done today, the reading is pending. Etiology of the source of the strep viridans is unclear. Exam Vital Signs (past 8 hours): - 04/12/19 08:30 04/12/19 08:54 04/12/19 09:16 Temperature Pulse Rate 82 84 Respiratory Rate 18 18 Blood Pressure 130/67 130/68 Pulse Oximetry 96 98 98 04/12/19 09:25 04/12/19 09:27 04/12/19 09:37 Temperature Pulse Rate 83 84 82 Respiratory Rate 16 16 18 Blood Pressure 126/64 138/60 136/70 Pulse Oximetry 98 97 98 04/12/19 10:00 04/12/19 10:30 04/12/19 11:00 Temperature 97.2 F L Pulse Rate 79 80 79 Respiratory Rate 16 16 16 Blood Pressure 130/60 132/69 119/59 L Pulse Oximetry 96 92 93 04/12/19 12:00 Temperature 100.9 F H Pulse Rate 81 Respiratory Rate 16 Blood Pressure 122/56 L Pulse Oximetry 93 Oxygen Delivery Method Room Air Oxygen Flow Rate 0 Narrative Exam Narrative: He is alert and oriented x3. No apparent distress. He is visiting with his friends and his . He appears to be improved. Heart is regular rate and rhythm without murmur. Lungs are clear to auscultation bilaterally. Extremities have no ankle edema. Objective Labs Result Diagrams: 04/12/19 05:35 04/12/19 05:35 Labs: Laboratory Results - last 24 hr 04/09/19 04/12/19 04/12/19 16:33 05:35 05:35 WBC 12.6 H RBC 3.92 L Hgb 11.1 L Hct 33.3 L MCV 84.9 MCH 28.2 MCHC 33.2 RDW 13.7 Plt Count 187 Neut % (Auto) 72.2 Lymph % (Auto) 9.6 L [place] % (Auto) 11.7 Eos % (Auto) 5.8 H Baso % (Auto) 0.7 Neut # (Auto) 9100 H Lymph # (Auto) 1200 [place] # (Auto) 1500 H Eos # (Auto) 700 H Baso # (Auto) 100 Sodium 135 L Potassium 4.4 Chloride 98 Carbon Dioxide 27 BUN 13 Creatinine 0.80 Estimated GFR > 60.0 BUN/Creatinine Ratio 16.3 Glucose 96 Calcium 8.0 L CA 19-9 Antigen 2928 H Assessment & Plan Assessment & Plan narrative: 1. 58-year-old male with Strep bacteremia. Blood cultures are growing strep parasanguinous. This is a strep viridans species. The etiology of this source of this strep bacteremia is unclear. Typical sources include liver abscess, endocarditis, or other sources. An echocardiogram was done today with the reading pending. If the 2D echo is negative and no source is found would co nsider transesophageal echo to definitively rule out endocarditis. Repeat blood cultures were done on the 3rd and are negative. Will continue IV ceftriaxone at this time. This was discussed with the patient and his . The current decision is whether to go with 2 weeks of IV ceftriaxone, after the 1st negative cultures, or 4 weeks+ if endocarditis is found. 2. Pancreatic mass with probable metastatic disease. CT scan suggestive of pancreatic cancer with liver Mets. However given bacteremia a liver abscess is also possible. Based on CT scan finding this seems unlikely. CT-guided biopsy of his liver was done today and sent for pathology and Gram stain and culture. 3. Type 2 diabetes, patient's metformin has been held. He continues to have poor appetite and weight loss. Will continue basal bolus insulin 4. Hyperlipidemia, continue statin 5. Hypothyroid, following radioactive iodine uptake, will continue levothyroxine Will need to determine duration of antibiotic therapy. Hopefully echocardiogram and liver biopsy will determine the source of bacteremia to delineate and outline the length of antibiotic treatment. PICC line placed today. Quality VTE Deep Vein Thrombosis/Pulmonary Embolism Present on Admission: No
[2019-04-12] MEDS: CEFTRIAXONE 2 GM/50 ML FROZ.PIGGY IV (20:30)
[2019-04-12] MEDS: ROSUVASTATIN 10 MG TABLET PO (20:30)
[2019-04-12] MEDS: DOCUSATE 100 MG CAPSULE PO (20:30)
[2019-04-12] MEDS: SODIUM CHLORIDE 0.9% FLUSH 10 ML IV (20:30)
[2019-04-13] VITALS (12 sets, daily range): BP systolic 115–137; BP diastolic 60–73; PULSE 68–101; RESP 16–20; TEMP 36.5–38.5; O2SAT 93–97
--- NOTE | 2019-04-13 04:15 | PC.NURSE ---
Addendum entered by Brisa Sotelo R.N. 04/13/19 06:39: Pt called me into his room because his picc dressing was falling off. Changed pt's dressing completely as he had been diaphoretic and original tegaderm was no longer adherent. Original Note: Pt spiked am oral temp of 101.3, pt is not not to the touch, diaphoretic, or c/o feeling feverish. Reported change to DAREK Marcelo who will be ordering medications to treat temp and pt's c/o abdominal fullness. Pt's abdomen is soft, non-tender, and does not demonstrate rebound tenderness.
[2019-04-13] MEDS: IBUPROFEN 400 MG TABLET PO (04:26)
[2019-04-13] MEDS: LEVOTHYROXINE 100 MCG TABLET PO (05:56)
[2019-04-13] MEDS: OXYCODONE ER 10 MG TAB PO ×2 (08:44→21:58)
[2019-04-13] MEDS: SODIUM CHLORIDE 0.9% FLUSH 10 ML IV ×2 (08:44→21:58)
[2019-04-13] MEDS: ENOXAPARIN 40 MG/0.4 ML SYRINGE SUBCUT (08:44)
[2019-04-13] MEDS: DOCUSATE 100 MG CAPSULE PO ×2 (08:44→21:57)
[2019-04-13] MEDS: OXYCODONE IR 10 MG TABLET PO ×2 (12:18→16:34)
[2019-04-13] MEDS: INSULIN ASPART 100 UNIT/ML INSULN PEN SUBCUT ×2 (12:21)
--- NOTE | 2019-04-13 13:22 | P.PN_ITS ---
Subjective Subjective Date Patient Seen: 04/13/19 Interval history: Mr. fragoso a 58-year-old male who was admitted to the hospital for Gram-positive bacteremia. His cultures finally grew strep parous inguina is. He continues to have fevers to 101, night sweats, and some intermittent rigors. He also reports right upper quadrant pain which has been improved with OxyContin and as needed oxycodone. Patient had a 2D echo. This did not show an embolic focus. There was no evidence of sub acute bacterial endocarditis. The patient also underwent a liver biopsy yesterday. The results of the biopsy are still pending. Exam Vital Signs (past 8 hours): - 04/13/19 05:55 04/13/19 08:00 04/13/19 08:05 Temperature 98.7 F 97.7 F Pulse Rate 68 Respiratory Rate 16 Blood Pressure 121/70 Pulse Oximetry 94 94 04/13/19 12:00 Temperature 98.2 F Pulse Rate 76 Respiratory Rate 16 Blood Pressure 115/60 Pulse Oximetry 95 Oxygen Delivery Method Room Air Oxygen Flow Rate 0 Narrative Exam Narrative: Pleasant gentleman in no acute distress Lungs: Clear to auscultation Cardiac exam: Regular rate and rhythm normal S1-S2 Abdomen: Obese soft mildly tender in the right upper quadrant no palpable mass is no rebound tender no board-like rigidity Extremities: No edema Skin exam: No rashes, patient is diaphoretic Objective Labs Result Diagrams: 04/12/19 05:35 04/12/19 05:35 Assessment & Plan Assessment & Plan narrative: 58-year-old male with Strep bacteremia. Blood cultures are growing strep parasanguinous. This is a strep viridans species. The etiology of this source of this strep bacteremia is unclear. Typical sources include liver abscess, endocarditis, or other sources. An echocardiogram was done today which is negative for endocarditis. As the 2D echo is negative consider transesophageal echo to definitively rule out endocarditis. Repeat blood cultures were done on the and are negative. Will continue IV ceftriaxone at this time. This was discussed with the patient and his . The current decision is whether to go with 2 weeks of IV ceftri axone, after the 1st negative cultures, or 4 weeks+ if endocarditis is found. Will obtain additional blood cultures given persistant fever. 2. Pancreatic mass with probable metastatic disease. CT scan suggestive of pancreatic cancer with liver Mets. However given bacteremia a liver abscess is also possible. Based on CT scan finding this seems unlikely. CT-guided biopsy of his liver was done today and sent for pathology and Gram stain and culture. 3. Type 2 diabetes, patient's metformin has been held. He continues to have poor appetite and weight loss. Will continue basal bolus insulin 4. Hyperlipidemia, continue statin 5. Hypothyroid, following radioactive iodine uptake, will continue levothyroxine Will need to determine duration of antibiotic therapy. Hopefully echocardiogram and liver biopsy will determine the source of bacteremia to delineate and outline the length of antibiotic treatment. PICC line placed today. Quality VTE Deep Vein Thrombosis/Pulmonary Embolism Present on Admission: No
[2019-04-13] MEDS: ONDANSETRON 4 MG/2 ML INJ IV (16:39)
[2019-04-13] MEDS: CEFTRIAXONE 2 GM/50 ML FROZ.PIGGY IV (18:53)
--- NOTE | 2019-04-13 19:38 | PC.NURSE ---
[facility] shift note: Temporal temp 101.2 recheck 101.1. Blood cultures ordered as per Dr. Sandhu. Made Juice OSWALD aware.
[2019-04-13] MEDS: ROSUVASTATIN 10 MG TABLET PO (21:58)
[2019-04-14] VITALS (8 sets, daily range): BP systolic 100–134; BP diastolic 53–74; PULSE 85–94; RESP 16–18; TEMP 36.7–38.3; O2SAT 91–96
[2019-04-14] MEDS: OXYCODONE IR 10 MG TABLET PO ×4 (01:47→18:44)
--- NOTE | 2019-04-14 02:12 | PC.NURSE ---
Addendum entered by Madelin Robbins R.N. 04/14/19 05:51: Slept most of shift. Complains of 6/10 chest/abdomen pain so medicated with Oxycodone. No further temps Original Note: Patient is alert and oriented. QAWALANGIN. Breath sounds diminished at bases with RA sat of 93%; has difficulty taking deep breaths due to pain. HRR. Denies nausea but reports poor appetite x 1+ months. BT hypoactive and has not had BM since 04/08; receiving Colace BID and is passing flatus. States he has urinary urgency and dribbles urine but denies dysuria or frequency. Independent with mobility and is steady on feet. Complains of 6/10 chest/abdominal pain and is tender across upper abdomen; medicated with Oxycodone. Liver biopsy site is RECEIVING WEIGHER with no redness or drainage. Currently afebrile. Noted slight jaundice of bilateral sclera. Reviewed culture results with coordinator, Cortney, and no longer requiring isolation as 1st blood culture was strep and 2nd blood culture was no growth. Fall risk score is moderate; patient steady on feet and knows to call if he feels lightheaded or dizzy prior to getting out of bed. rooming in.
[2019-04-14] MEDS: LEVOTHYROXINE 100 MCG TABLET PO (05:43)
--- NOTE | 2019-04-14 08:04 | P.PN_ITS ---
Subjective Subjective Date Patient Seen: 04/14/19 Interval history: He is seen today to follow up the pancreatic mass with liver lesions suggestive of liver Mets, strep viridans bacteremia, daily fevers. He continues to spike temperatures up to 101.2 at 7:00 p.m. last night, remaining afebrile the rest of the day. His hemoglobin yesterday was 11.1 with a white count of 12.6. His LFTs were stable a few days ago. He is complaining of hiccups. A repeat CT of the liver today shows new mild ascites without significant change in the liver lesions to suggest progressive abscess instead of metastasis. Chest x-ray does not show any definite pneumonia because the fevers. He is discussed with Cardiology at [facility] who accepts him for SARITA tomorrow if the transfer can be arranged. Exam Vital Signs (past 8 hours): - 04/14/19 05:38 Temperature 98.4 F Pulse Rate 90 Respiratory Rate 16 Blood Pressure 129/73 Pulse Oximetry 93 Oxygen Delivery Method Room Air Oxygen Flow Rate 0 Narrative Exam Narrative: Alert and oriented x3. No apparent distress. Heart is regular rate and rhythm without murmur. Lungs are clear to auscultation bilaterally. Extremities have no ankle edema. Abdomen remains quite obese, with a very enlarged liver, with mild tenderness over the liver area. Objective Labs Result Diagrams: 04/12/19 05:35 04/12/19 05:35 Assessment & Plan Assessment & Plan narrative: 58-year-old male with Strep bacteremia. Blood cultures are growing strep parasanguinous. This is a strep viridans species. The etiology of this source of this strep bacteremia is unclear. Typical sources include liver abscess, endocarditis, or other sources. An echocardiogram was done which was negative for endocarditis. A SARITA is being arranged at [facility] for tomorrow with transfer over there today or tomorrow. The current decision is whether to go with 2 weeks of IV ceftriaxone, after the 1st negative cultures, or 4 weeks+ if endocarditis is found. Abdominal CT and chest x-ray repeated today due to ongoing fevers. 2. Pancreatic mass with probable metastatic disease. CT scan suggestive of pancreatic cancer with liver Mets. However given bacteremia a liver abscess was also thought to be possible but is unlikely based on follow-up CT today. CT-gu ided biopsy of the liver along with attempt to obtain a Gram stain/culture of this area was also done a few days ago. Anticipate results in 1-2 days. 3. Type 2 diabetes, patient's metformin has been held. He continues to have poor appetite and weight loss. Will continue basal bolus insulin 4. Hyperlipidemia, continue statin 5. Hypothyroid, following radioactive iodine uptake, will continue levothyroxine Will need to determine duration of antibiotic therapy. Hopefully transesophageal echocardiogram and liver biopsy will determine the source of bacteremia to delineate and outline the length of antibiotic treatment. PICC line placed 2 days ago. Quality VTE Deep Vein Thrombosis/Pulmonary Embolism Present on Admission: No
[2019-04-14] MEDS: ONDANSETRON 4 MG/2 ML INJ IV (08:14)
[2019-04-14] MEDS: ENOXAPARIN 40 MG/0.4 ML SYRINGE SUBCUT (08:22)
[2019-04-14] MEDS: OXYCODONE ER 10 MG TAB PO ×2 (08:25→20:27)
[2019-04-14] MEDS: SODIUM CHLORIDE 0.9% FLUSH 10 ML IV ×2 (08:25→20:28)
[2019-04-14] MEDS: DOCUSATE 100 MG CAPSULE PO ×2 (08:26→20:29)
[2019-04-14] MEDS: INSULIN ASPART 100 UNIT/ML INSULN PEN SUBCUT ×3 (09:34→12:28)
--- NOTE | 2019-04-14 09:50 | PC.NURSE ---
Addendum entered by Yasmine Espitia R.N. 04/14/19 13:00: Pt back at 1153 via wheelchair. At 50% of lunch, 1/2 of a 1/2 turkey sandwich and 100% of chocolate pudding cup. Addendum entered by Yasmine Espitia R.N. 04/14/19 11:26: Pt left to CT scan and Xray at 1120 via wheelchair with transport. Pt finished eating around 0900 and has only had sips of water since then. Original Note: Day Shift- Pt A&OX4, able to make needs known using call light. Ava at bedside assists in pt's ADL's. Rates 3-4/10 aching non-tender pain across upper abd and mid lower chest. On scheduled Oxycontin BID. Mild nausea this AM, pt requested prn Zofran prior to eating breakfast. PRN Zofran IV given at 0814. Pt ate 1/2 omelette for breakfast. Pt also c/o intermittent hiccups. Will report to Dr during rounding. Pt OOB indep with steady gait, enc slow rise sit to stand to avoid light-headedness. Pt agreeable. TOOTIE PICC dressing intact, flushes well with brisk blood return.
--- NOTE | 2019-04-14 11:12 | DI.RAD.S_ITS ---
PROCEDURE: XR CHEST 2V INDICATIONS: Fevers TECHNIQUE: 2 views of the chest were acquired. COMPARISON: [facility], CR, XR CHEST FOR PICC 1V, 04/12/2019, 12:31. FINDINGS: Surgical changes and devices: Postoperative changes of the left humeral head are present. There is a left-sided PICC line catheter identified with the tip overlying the mid to lower superior vena cava. Lungs and pleura: Elevation of the right diaphragm is similar to the previous examination with discoid atelectasis at the right lung base. No definite consolidation within the left lung is appreciated. No obvious pneumothorax is evident. No large pleural effusion is identified. Mediastinum: Mediastinal contours are normal. Heart size is normal. Bones and chest wall: No suspicious bony abnormalities. Soft tissues appear unremarkable. IMPRESSION: Right basilar atelectasis. Superimposed pneumonia is felt to be less likely, but cannot be completely excluded. Dictated by: Zain Hewitt M.D. on 04/14/2019 at 10:35 Approved by: Zain Hewitt M.D. on 04/14/2019 at 10:36
--- NOTE | 2019-04-14 11:12 | DI.CT.S_ITS ---
PROCEDURE: CT ABDOMEN PELVIS W CON INDICATIONS: Fever and Liver Lesions TECHNIQUE: After the administration of oral and intravenous contrast, 5 mm thick sections acquired from the diaphragms to the symphysis. 5 mm thick coronal and sagittal reformats were performed. For radiation dose reduction, the following was used: automated exposure control, adjustment of mA and/or kV according to patient size. COMPARISON: [facility], CT, CT ABDOMEN PELVIS W CON, 04/08/2019, 7:54. FINDINGS: Image quality: Diagnostic. ABDOMEN: Lung bases: Lung bases are clear. Heart size is normal. Solid organs: Numerous hypodense lesions are identified within the liver these lesions are grossly unchanged in size and number. No drainable fluid collection is evident within the liver. The portal vein is patent. The gallbladder is surgically absent. The spleen is mildly enlarged and measures approximately 16.7 cm in craniocaudal dimension. The kidneys are normal in size. There is no hydronephrosis. There appear to be small cysts involving the inferior left kidney. The adrenals are within normal limits. There continues to be a hypodense mass evident within the uncinate process of the pancreas that measures approximately 3.0 x 3.4 cm (image 54, series 2). Peritoneum and bowel: The stomach is unremarkable. The small bowel loops are nondilated. Moderate residual stool is identified within the colon. The appendix is well-visualized and normal in size. Distal colonic diverticulosis is identified without definitive evidence to suggest acute diverticulitis. A small amount of free fluid is evident within the abdomen, which is new since the previous study. The density of this fluid measures approximately 8 Hounsfield units. Nodes and vessels: No retroperitoneal or mesenteric adenopathy. Aorta and inferior vena cava are normal in caliber. There is aortic atherosclerosis. Bones: No acute fracture or suspicious osseous lesion is evident. Mild to moderate degenerative changes of the imaged spine are present. PELVIS: Genitourinary: Bladder wall thickness is normal. The prostate is not enlarged. Miscellaneous: No inguinal hernias or adenopathy. There has been interval development of mild pelvic ascites. No abscess is evident. Bones: No suspicious bony lesions. No acute pelvic fractures identified. IMPRESSION: 1. Interval development of mild abdominal and pelvic ascites. This is of uncertain origin. Please correlate clinically to exclude the possibility of spontaneous bacterial peritonitis. 2. Distal colonic diverticulosis without convincing evidence to suggest diverticulitis. However, possibility of subtle early sigmoid diverticulitis cannot be excluded. 3. Unchanged pancreatic mass is suspicious for a primary neoplasm. 4. Numerous hypodense lesions within the liver most likely represent metastatic lesions. The possibility of numerous foci of liver infection/abscess is felt to be unlikely. 5. Splenomegaly. Dictated by: Zain Hewitt M.D. on 04/14/2019 at 10:55 Approved by: Zain Hewitt M.D. on 04/14/2019 at 11:03
--- NOTE | 2019-04-14 15:35 | CM.DPC ---
DCP: continued: Case discussed in Team Rounds with Dr. Fierro. He confirms that a transfer to higher level of care is probable is ? remain re source of the infection. He planned to work on this today. His progress note now is in draft and primarily reflects the information from Dr. Sandhu's note of yesterday. She, too had ? need for a transfer. If pt does stay at and is able to d/c to home setting CM/social worker aide Marcelle who also sees pt at the oncology clinic in her role as BATCH ANALYST/Pt navigator did see pt on 04/13 late afternoon and confirmed that his choice for home IV antibiotic company would be [employer]. This process has note been started as the POC has increasingly focused on likely transfer. DCP team will be following.
--- NOTE | 2019-04-14 17:30 | P.DS_ITS ---
History of Present Illness History of Present Illness Date Patient Seen: 04/14/19 Chief complaint: ANTIBIOTICS INFECTION Narrative: The patient is a 58-year-old male with a history of type 2 diabetes, hypothyroidism, hyperlipidemia, who was in his usual state of health until February of this year. Patient states at that time he developed pain which he describes in the right upper quadrant which is worse with deep inspiration. He also reports fever to 99, shaking chills, and sweats. He has had decreased appetite, weight loss. The patient was seen in the emergency room around March 23 for his chest pain. He underwent a CT a the chest which was negative for PE. The patient subsequently developed recurrence progressive symptoms. Specifically he had right upper quadrant pain which was severe with deep inspiration. Pain traveled across his abdomen. He had pain which he describes with deep breathing. He was again evaluated in the emergency department. The patient had a CT scan of the abdomen. The ultimate addendum read possible pancreatic mass and liver Mets. The patient was seen by Dr. Tyson with plans for liver biopsy. He did have blood cultures obtained in the emergency department which can became positive for gram-positive cocci. Patient was called back to the emergency department and admitted to the hospital for presumed bacteremia. Discharge Providers Provider Date of admission: 04/09/19 16:56 Discharge Date: 04/14/19 Discharge provider: Leticia Fierro MD Summary Hospital Course Discharge Diagnosis: 1. 58-year-old male with Strep bacteremia. Blood cultures are growing strep p arasanguinous. This is a strep viridans species. 2. Pancreatic mass with probable metastatic disease. 3. Type 2 diabetes, patient's metformin has been held. He continues to have poor appetite and weight loss. Will continue basal bolus insulin 4. Hyperlipidemia, continue statin 5. Hypothyroid, following radioactive iodine uptake, will continue levothyroxine Hospital Course: 58-year-old male with Strep bacteremia. Blood cultures are growing strep parasanguinous. This is a strep viridans species. The etiology of this source of this strep bacteremia is unclear. Typical sources include liver abscess, endocarditis, or other sources. An echocardiogram was done which was negative for endocarditis. A SARITA is being arranged at [facility] for tomorrow with transfer over there today or tomorrow. The current decision is whether to go with 2 weeks of IV ceftriaxone, after the 1st negative cultures, or 4 weeks+ if endocarditis is found. Abdominal CT and chest x-ray repeated today due to ongoing fevers. 2. Pancreatic mass with probable metastatic disease. CT scan suggestive of pancreatic cancer with liver Mets. However given bacteremia a liver abscess was also thought to be possible but is unlikely based on follow-up CT today. CT- guided biopsy of the liver along with attempt to obtain a Gram stain/culture of this area was also done a few days ago. Anticipate results in 1-2 days. 3. Type 2 diabetes, patient's metformin has been held. He continues to have poor appetite and weight loss. Will continue basal bolus insulin 4. Hyperlipidemia, continue statin 5. Hypothyroid, following radioactive iodine uptake, will continue levothyroxine Will need to determine duration of antibiotic therapy. Hopefully transesophageal echocardiogram and liver biopsy will determine the source of bacteremia to delineate and outline the length of antibiotic treatment. PICC line placed 2 days ago. Status at Discharge Cognitive/behavioral status at discharge: oriented Functional status at discharge: independent ambulation Overall status at discharge: patient is back to baseline Time Spent with Patient Time spent: Greater than 30 minutes Exam Vital Signs (past 8 hours): - 04/14/19 14:00 04/14/19 15:53 Temperature 98.0 F Pulse Rate 86 90 Respiratory Rate 18 18 Blood Pressure 132/64 130/72 Pulse Oximetry 91 Oxygen Delivery Method Room Air Oxygen Flow Rate 0 Narrative Exam Narrative: Alert and oriented x3. No apparent distress. Heart is regular rate and rhythm without murmur. Lungs are clear to auscultation bilaterally. Extremities have no ankle edema. Abdomen remains quite obese, with a very enlarged liver, with mild tenderness over the liver area. Objective Labs Result Diagrams: 04/12/19 05:35 04/12/19 05:35 Discharge Plan Discharge Plan Patient Disposition: [facility] Transfer to: [facility] Under care of provider: Dr. Garcia Discharge comment: SARITA planned for tomorrow with Dr. Riojas Discharge Med Rec/Prescriptions Prescriptions: New enoxaparin [Lovenox] 40 mg/0.4 mL Syringe 40 mg subcut DAILY Qty: 3 RF: 0 ceftriaxone in dextrose,iso-os 2 gram/50 mL Piggyback 2 gm IV Q24H Qty: 30 RF: 0 Continued metformin 500 mg Tablet 500 mg PO BID RF: 0 rosuvastatin 10 mg Tablet 10 mg PO DAILY RF: 0 levothyroxine 200 mcg Capsule 200 mcg PO DAILY RF: 0 multivitamin Tablet 1 tab PO DAILY RF: 0 tramadol 50 mg tablet 50 mg PO Q6-8H PRN (Reason: pain) Qty: 14 RF: 0 ondansetron 4 mg tablet,disintegrating 4 mg PO Q6H PRN (Reason: nausea and vomiting) Qty: 14 RF: 0 oxycodone-acetaminophen [Percocet] 5-325 mg tablet 1 tab PO Q4-6H PRN (Reason: pain) Qty: 7 RF: 0 Quality VTE Deep Vein Thrombosis/Pulmonary Embolism Present on Admission: No
--- NOTE | 2019-04-14 18:29 | PC.NURSE ---
Addendum entered by Mindi Zamudio R.N. 04/14/19 21:51: Uneventful evening. Up independently in room TOOTIE PICC intact/patent. HS CBG = 146, no S/S required. Call light w/in reach. Continue w/plan of care. Original Note: Pt up independently in room SpO2 95% RA TOOTIE PICC intact/patent. AC CBG = 144, pt declined insulin at this time. Call light w/in reach.
[2019-04-14] MEDS: CEFTRIAXONE 2 GM/50 ML FROZ.PIGGY IV (20:27)
[2019-04-14] MEDS: ROSUVASTATIN 10 MG TABLET PO (20:28)
[2019-04-15] VITALS (9 sets, daily range): BP systolic 115–140; BP diastolic 58–69; PULSE 88–96; RESP 15–20; TEMP 36.4–38.4; O2SAT 92–97
--- NOTE | 2019-04-15 00:27 | PC.NURSE ---
Temp. 101.0, cooling measures applied. Declined Ibuprofen, will monitor.
--- NOTE | 2019-04-15 01:28 | PC.NURSE ---
DAREK Marcelo notified with elevated to 101.1 after cooling measures. Ordered to monitor temp. & if it goes up to 101.05 to give Will PRN. Ibuprofen 400 mg. per e-mar. Will monitor.
[2019-04-15] MEDS: LEVOTHYROXINE 100 MCG TABLET PO (06:06)
[2019-04-15] MEDS: OXYCODONE IR 10 MG TABLET PO ×2 (06:08→17:01)
[2019-04-15] MEDS: ONDANSETRON 4 MG/2 ML INJ IV ×2 (08:33→17:12)
[2019-04-15] MEDS: OXYCODONE ER 10 MG TAB PO (08:33)
[2019-04-15] MEDS: DOCUSATE 100 MG CAPSULE PO (08:34)
[2019-04-15] MEDS: ENOXAPARIN 40 MG/0.4 ML SYRINGE SUBCUT (08:34)
[2019-04-15] MEDS: SODIUM CHLORIDE 0.9% FLUSH 10 ML IV (08:34)
--- NOTE | 2019-04-15 10:50 | PC.NURSE ---
PTS SPOUSE BECOMING INCREASINGLY ANXIOUS R/T PTS CARE- THE WAIT FOR POTENTIAL TRANSFER/SARITA IS BEGINNING TO WEIGH ON THE PT AND SPOUSE- THIS IS HOSPITAL DAY # 7
--- NOTE | 2019-04-15 14:27 | ONC.MSW ---
Description: T/C-Care Coordination Activity: KENNEL STAFF MEMBER spoke with pt's to clarify plan for pt's transfer to [facility] for the SARITA procedure, and his appt. in Oncology tomorrow. Pt's current plan is to go to [facility] later today, and will most likely be inpt at [facility] for a few days, as of the plan right now. We will go ahead and cancel his appt. with Dr. Alas here tomorrow, with a potential plan of pt being seen at [facility], or, to be scheduled here in the next available urgent appt. w/[facility]. will call this KENNEL STAFF MEMBER by Monday with an update.
[2019-04-15] MEDS: INSULIN ASPART 100 UNIT/ML INSULN PEN SUBCUT ×2 (17:48→17:49)
--- NOTE | 2019-04-15 17:55 | PC.NURSE ---
Addendum entered by Mindi Zamudio R.N. 04/15/19 19:56: Pt transfer to [facility] via ambulance established ' Report called to RN. PT left in stable condition Original Note: Pt reating at intervals. Med at 1700 w/oxycodone 10mg for 6/10 pain. Lungs clear/diminished at bases, SpO2 94% RA AC CBG = 142, recieved S/S and scheduled novolog. Call light w/in reach. Pt independent in room Calls appropriately for needs.
--- NOTE | 2019-04-15 18:40 | PM.DS.1 ---
History of Present Illness History of Present Illness Date Patient Seen: 04/15/19 Time Patient Seen: 18:41 Chief complaint: ANTIBIOTICS INFECTION Narrative: As per Mirian Sandhu MD: The patient is a 58-year-old male with a history of type 2 diabetes, hypothyroidism, hyperlipidemia, who was in his usual state of health until February of this year. Patient states at that time he developed pain which he describes in the right upper quadrant which is worse with deep inspiration. He also reports fever to 99, shaking chills, and sweats. He has had decreased appetite, weight loss. The patient was seen in the emergency room around March 23 for his chest pain. He underwent a CT a the chest which was negative for PE. The patient subsequently developed recurrence progressive symptoms. Specifically he had right upper quadrant pain which was severe with deep inspiration. Pain traveled across his abdomen. He had pain which he describes with deep breathing. He was again evaluated in the emergency department. The patient had a CT scan of the abdomen. The ultimate addendum read possible pancreatic mass and liver Mets. The patient was seen by Dr. Tyson with plans for liver biopsy. He did have blood cultures obtained in the emergency department which can became positive for gram-positive cocci. Patient was called back to the emergency department and admitted to the hospital for presumed bacteremia. Discharge Providers Provider Date of admission: 04/09/19 16:56 Discharge Date: 04/15/19 Discharge provider: Marco Abdi DO Summary Hospital Course Discharge Diagnosis: 1. Strep Parasanguinous bacteremia. Acute, active, present on admission 2. Pancreatic mass with probable metastatic disease. 3. Type 2 diabetes 4. Hyperlipidemia 5. Hypothyroidism Hospital Course: 1. Strep Parasanguinous bacteremia. Acute, active, present on admission - 58-year-old male with Strep bacteremia. Blood cultures are growing strep parasanguinous. This is a strep viridans species. The etiology of this source of this strep bacteremia is unclear. Typical sources include liver abscess, endocarditis, or other sources. An echocardiogram was done which was negative for endocarditis. A SARITA was being arranged at [facility] however they have no current inpatient beds, so I discussed the case with Dr. Sofie Buckley at [facility] in [place] and she has accepted the patient for transfer. The current decision is whether to go with 2 weeks of IV ceftriaxone, after the 1st negative cultures, or 4 weeks+ if endocarditis is found. - subsequent blood cultures have been negative, last positive blood culture 04/08. -continue ceftriaxone 2 gm daily. -consider infectious disease consult if available. 2. Pancreatic mass with probable metastatic disease. CT scan suggestive of pancreatic cancer with liver Mets. However given bacteremia a liver abscess was also thought to be possible however pathology came back as a poorly differentiated malignant neoplasm from a biopsy on 04/12. His CT scan further showed mild ascites which is likely secondary to his malignancy. - Outpatient evaluation of pancreatic mass and ascites. Previously scheduled for 04/16, however this will need to be rescheduled. 3. Type 2 diabetes, patient's metformin has been held. He continues to have poor appetite and weight loss. Will continue basal bolus insulin 4. Hyperlipidemia, continue statin 5. Hypothyroid, following radioactive iodine uptake, will continue levothyroxine Will need to determine duration of antibiotic therapy. Hopefully transesophageal echocardiogram will determine the source of bacteremia to delineate and outline the length of antibiotic treatment. PICC line placed 2 days ago. Time Spent with Patient Time spent: Greater than 30 minutes Exam Vital Signs (past 8 hours): - 04/15/19 12:00 04/15/19 15:42 04/15/19 16:30 Temperature 98.4 F 99.2 F Pulse Rate 88 89 Respiratory Rate 15 20 Blood Pressure 115/64 139/68 Pulse Oximetry 92 97 92 Oxygen Delivery Method Room Air Oxygen Flow Rate 0 Narrative Exam Narrative: GENERAL APPEARANCE: Well developed, well nourished, in no acute distress. SKIN: Inspection of the skin reveals no rashes, ulcerations or petechiae. HEENT: The sclerae were anicteric and conjunctivae were pink and moist. Extraocular movements were intact and pupils were equal, round with normal accommodation. External inspection of the ears and nose showed no scars, lesions, or masses. Lips, teeth, and gums showed normal mucosa. The oral mucosa, hard and soft palate, tongue and posterior pharynx were unremarkable. NECK: Supple and symmetric. There was no thyroid enlargement, and no tenderness, or masses were felt. CHEST: Normal AP diameter and normal contour without any kyphoscoliosis. LUNGS: Auscultation of the lungs revealed no wheezes, rhonchi, or rales. CARDIOVASCULAR: There was a regular rate and rhythm without any murmurs, gallops, rubs. Peripheral pulses were 2+ and symmetric. ABDOMEN: Distended. Obese abdomen. MUSCULOSKELETAL: There was no tenderness or effusions noted. Muscle strength and tone were normal. EXTREMITIES: No cyanosis, clubbing or edema. NEUROLOGIC: Alert and oriented x 3. Normal affect. Gait was normal. Strength is +5/5 in the Upper Extremities and Lower Extremities Bilaterally. Sensation to touch was normal. Objective Labs Result Diagrams: 04/12/19 05:35 04/12/19 05:35 Discharge Plan Discharge Plan Patient Disposition: [facility] Transfer to: [facility] Under care of provider: Dr. Buckley Discharge comment: 1. Strep Parasanguinous bacteremia. Acute, active, present on admission - 58-year-old male with Strep bacteremia. Blood cultures are growing strep parasanguinous. This is a strep viridans species. The etiology of this source of this strep bacteremia is unclear. Typical sources include liver abscess, endocarditis, or other sources. An echocardiogram was done which was negative for endocarditis. A SARITA was being arranged at [facility] however they have no current inpatient beds, so I discussed the case with Dr. Sofie Buckley at [facility] in [place] and she has accepted the patient for transfer. The current decision is whether to go with 2 weeks of IV ceftriaxone, after the 1st negative cultures, or 4 weeks+ if endocarditis is found. - subsequent blood cultures have been negative, last positive blood culture 04/08. - continue ceftriaxone 2 gm daily. 2. Pancreatic mass with probable metastatic disease. CT scan suggestive of pancreatic cancer with liver Mets. However given bacteremia a liver abscess was also thought to be possible however pathology came back as a poorly differentiated malignant neoplasm from a biopsy on 04/12. His CT scan further showed mild ascites which is likely secondary to his malignancy. - Outpatient evaluation of pancreatic mass and ascites. Previously scheduled for 04/16, however this will need to be rescheduled. 3. Type 2 diabetes, patient's metformin has been held. He continues to have poor appetite and weight loss. Will continue basal bolus insulin 4. Hyperlipidemia, continue statin 5. Hypothyroid, following radioactive iodine uptake, will continue levothyroxine Will need to determine duration of antibiotic therapy. Hopefully transesophageal echocardiogram will determine the source of bacteremia to delineate and outline the length of antibiotic treatment. PICC line placed 2 days ago. Discharge Med Rec/Prescriptions Prescriptions: New enoxaparin [Lovenox] 40 mg/0.4 mL Syringe 40 mg subcut DAILY Qty: 3 RF: 0 ceftriaxone in dextrose,iso-os 2 gram/50 mL Piggyback 2 gm IV Q24H Qty: 30 RF: 0 Continued metformin 500 mg Tablet 500 mg PO BID RF: 0 rosuvastatin 10 mg Tablet 10 mg PO DAILY RF: 0 levothyroxine 200 mcg Capsule 200 mcg PO DAILY RF: 0 multivitamin Tablet 1 tab PO DAILY RF: 0 tramadol 50 mg tablet 50 mg PO Q6-8H PRN (Reason: pain) Qty: 14 RF: 0 ondansetron 4 mg tablet,disintegrating 4 mg PO Q6H PRN (Reason: nausea and vomiting) Qty: 14 RF: 0 oxycodone-acetaminophen [Percocet] 5-325 mg tablet 1 tab PO Q4-6H PRN (Reason: pain) Qty: 7 RF: 0 Discharge Orders: Discharge (Order); Ordered 04/15/19 Ordered By: Marco Abdi Discharge Health Status Brief summary of current health status: 1. Strep Parasanguinous bacteremia. Acute, active, present on admission - 58-year-old male with Strep bacteremia. Blood cultures are growing strep parasanguinous. This is a strep viridans species. The etiology of this source of this strep bacteremia is unclear. Typical sources include liver abscess, endocarditis, or other sources. An echocardiogram was done which was negative for endocarditis. A SARITA was being arranged at [facility] however they have no current inpatient beds, so I discussed the case with Dr. Sofie Buckley at [facility] in [place] and she has accepted the patient for transfer. The current decision is whether to go with 2 weeks of IV ceftriaxone, after the 1st negative cultures, or 4 weeks+ if endocarditis is found. - subsequent blood cultures have been negative, last positive blood culture 04/08. - continue ceftriaxone 2 gm daily. 2. Pancreatic mass with probable metastatic disease. CT scan suggestive of pancreatic cancer with liver Mets. However given bacteremia a liver abscess was also thought to be possible however pathology came back as a poorly differentiated malignant neoplasm from a biopsy on 04/12. His CT scan further showed mild ascites which is likely secondary to his malignancy. - Outpatient evaluation of pancreatic mass and ascites. Previously scheduled for 04/16, however this will need to be rescheduled. 3. Type 2 diabetes, patient's metformin has been held. He continues to have poor appetite and weight loss. Will continue basal bolus insulin 4. Hyperlipidemia, continue statin 5. Hypothyroid, following radioactive iodine uptake, will continue levothyroxine Will need to determine duration of antibiotic therapy. Hopefully transesophageal echocardiogram will determine the source of bacteremia to delineate and outline the length of antibiotic treatment. PICC line placed 2 days ago. Provider Discharge Instructions Diet: Diet as Tolerated Diet comment: NPO at midnight pending SARITA timing. Activity: As tolerated. Quality VTE Deep Vein Thrombosis/Pulmonary Embolism Present on Admission: No
== END 2019-04-15 19:35 | disposition short-term general hospital (02) | DRG 872 ==
LOC: ED 16:50 → AC 16:56
PROVIDERS: Internal Medicine; Nurse Practitioner Adult Health; Admitting Provider Internal Medicine; Emergency Provider Emergency Medicine; Visit Provider Internal Medicine
DX: R78.81 Bacteremia (principal); C25.0 Malignant neoplasm of head of pancreas; C78.7 Secondary malignant neoplasm of liver and intrahepatic bile duct; B95.4 Other streptococcus as the cause of diseases classified elsewhere; R50.9 Fever, unspecified; R00.0 Tachycardia, unspecified; I95.9 Hypotension, unspecified; E78.5 Hyperlipidemia, unspecified; E03.9 Hypothyroidism, unspecified; E11.9 Type 2 diabetes mellitus without complications; Z79.84 Long term (current) use of oral hypoglycemic drugs
CPT/HCPCS: 36415; 36569; 36591; 47000; 71046; 74177; 77012; 80048; 80053; 80076; 82962; 83036; 83605; 83615; 83690; 84145; 85025; 85610; 85730; 86301; 87040; 93306; 96365; 99282; 99284; J0696; J1170; J1642; J1650; J2250; J2405; J3010; Q9967